=== PATIENT | female | born 1950 | race Caucasian/White ===

== ENCOUNTER → 2023-09-21 11:05 | Outpatient (REF) | payer MEDICARE, OTHER, SELFPAY ==
[2023-09-21 12:41] LABS: ALT (SGPT) 24 U/L (0-35); AST (SGOT) 39 U/L (14-36); Albumin 5.1 g/dl (3.5-5.0); Alkaline Phosphatase 68 U/L (38-126); Blood Urea Nitrogen 19 mg/dl (7-17); Calcium 9.9 mg/dl (8.4-10.2); Carbon Dioxide 25 mmol/L (22-30); Chloride 101 mmol/L (98-107); Glucose 93 mg/dl (70-99); Potassium 4.1 mmol/L (3.5-5.1); Sodium 136 mmol/L (135-145); Total Cholesterol 250 mg/dl (50-199); Total Protein 8.5 g/dl (6.3-8.2); Triglyceride 83 mg/dl (10-149); Very Low Density Lipoprotein 16 mg/dl (0-30); eGFR > 60.00
[2023-09-21 12:50] LABS: HDL Cholesterol 138 mg/dl; LDL Cholesterol, Calculated 96 mg/dl
[2023-09-21 14:10] LABS: Glycohemoglobin (HgbA1c) 5.9 % (4.0-5.6)
== END ==
LOC: REG 11:05
PROVIDERS: ATTENDING PHYSICIAN Family Medicine; REFERRING PHYSICIAN Psychiatry & Neurology Neurology
DX: E78.00 Pure hypercholesterolemia, unspecified (principal); R73.03 Prediabetes; R73.9 Hyperglycemia, unspecified; Z13.228 Encounter for screening for other metabolic disorders
CPT/HCPCS: 36415; 80053; 80061; 83036

== ENCOUNTER → 2023-09-24 10:37 | Outpatient (REF) | payer MEDICARE, OTHER, SELFPAY | LOC: RAD 10:37 | PROVIDERS: ATTENDING PHYSICIAN Internal Medicine Rheumatology; FAMILY PHYSICIAN Family Medicine | DX: M81.0 Age-related osteoporosis without current pathological fracture (principal); Z79.899 Other long term (current) drug therapy | CPT/HCPCS: 77080 ==

== ENCOUNTER → 2023-12-17 10:21 | Outpatient (REF) | payer MEDICARE, OTHER, SELFPAY ==
[2023-12-17 11:54] LABS: ALT (SGPT) 11 U/L (0-35); AST (SGOT) 36 U/L (14-36); Albumin 4.8 g/dl (3.5-5.0); Alkaline Phosphatase 61 U/L (38-126); Blood Urea Nitrogen 26 mg/dl (7-17); Calcium 10.3 mg/dl (8.4-10.2); Carbon Dioxide 29 mmol/L (22-30); Chloride 101 mmol/L (98-107); Glucose 113 mg/dl (70-99); Potassium 4.8 mmol/L (3.5-5.1); Sodium 139 mmol/L (135-145); Total Bilirubin 0.8 mg/dl (0.2-1.3); Total Protein 7.9 g/dl (6.3-8.2); eGFR > 60.00
== END ==
LOC: REG 10:21
PROVIDERS: ATTENDING PHYSICIAN Internal Medicine Rheumatology; FAMILY PHYSICIAN Family Medicine
DX: M81.0 Age-related osteoporosis without current pathological fracture (principal); Z79.899 Other long term (current) drug therapy
CPT/HCPCS: 36415; 80053

== ENCOUNTER → 2024-07-01 12:40 | Outpatient (REF) | payer MEDICARE, OTHER, SELFPAY ==
[2024-07-01 13:21] LABS: Ionized Calcium 1.26 mMOL/L (1.15-1.33)
[2024-07-01 14:14] LABS: ALT (SGPT) < 10 U/L (0-35); AST (SGOT) 37 U/L (14-36); Alkaline Phosphatase 62 U/L (38-126); Blood Urea Nitrogen 16 mg/dl (7-17); Calcium 9.9 mg/dl (8.4-10.2); Carbon Dioxide 34 mmol/L (22-30); Chloride 96 mmol/L (98-107); Glucose 71 mg/dl (70-99); Potassium 4.1 mmol/L (3.5-5.1); Sodium 139 mmol/L (135-145); Total Bilirubin 0.7 mg/dl (0.2-1.3); Total Protein 8.3 g/dl (6.3-8.2); eGFR > 60.00
[2024-07-01 14:30] LABS: Vitamin D, 25-OH*** 54.4 ng/mL (30-80)
== END ==
LOC: REG 12:40
PROVIDERS: ATTENDING PHYSICIAN Internal Medicine Rheumatology; FAMILY PHYSICIAN Family Medicine
DX: E83.52 Hypercalcemia (principal); M81.0 Age-related osteoporosis without current pathological fracture; Z79.899 Other long term (current) drug therapy
CPT/HCPCS: 36415; 80053; 82306; 82330; 83970

== ENCOUNTER → 2024-07-06 14:27 | Outpatient (REF) | payer MEDICARE, OTHER, SELFPAY ==
[2024-07-06 16:18] LABS: Folate 5.6 ng/ml (2.76-20); Vitamin B12 415 pg/ml (239-931)
== END ==
LOC: REG 14:27
PROVIDERS: ATTENDING PHYSICIAN Internal Medicine Rheumatology; FAMILY PHYSICIAN Family Medicine; REFERRING PHYSICIAN Psychiatry & Neurology Neurology
DX: D51.3 Other dietary vitamin B12 deficiency anemia (principal); G20.A1 Parkinson's disease without dyskinesia, without mention of fluctuations; M81.0 Age-related osteoporosis without current pathological fracture; Z79.899 Other long term (current) drug therapy; E53.1 Pyridoxine deficiency
CPT/HCPCS: 36415; 82607; 82746; 84207

== ENCOUNTER → 2024-12-29 11:19 | Outpatient (REF) | payer MEDICARE, OTHER, SELFPAY | LOC: WDC 11:19 | PROVIDERS: ATTENDING PHYSICIAN Family Medicine | DX: Z12.31 Encounter for screening mammogram for malignant neoplasm of breast (principal) | CPT/HCPCS: 77063; 77067 ==

== ENCOUNTER → 2024-12-29 11:50 | Outpatient (REF) | payer MEDICARE, OTHER, SELFPAY ==
[2024-12-29 14:35] LABS: Hematocrit 44.1 % (37.0-47.0); Hemoglobin 14.3 g/dL (12.0-16.0); Mean Corp Hgb Conc. 32.4 g/dL (33.0-37.0); Mean Corpuscular Volume 100.0 fL (81.0-99.0); Nucleated Red Blood Cells % 0 %; Platelet Count 207 10^3/uL (130-400); Red Cell Dist. Width 13.7 % (11.5-14.5)
[2024-12-29 15:00] LABS: ALT (SGPT) < 10 U/L (0-35); AST (SGOT) 26 U/L (14-36); Albumin 4.9 g/dl (3.5-5.0); Alkaline Phosphatase 62 U/L (38-126); Blood Urea Nitrogen 19 mg/dl (7-17); Calcium 10.2 mg/dl (8.4-10.2); Carbon Dioxide 28 mmol/L (22-30); Chloride 102 mmol/L (98-107); Glucose 128 mg/dl (70-99); Potassium 4.6 mmol/L (3.5-5.1); Sodium 139 mmol/L (135-145); Total Protein 7.8 g/dl (6.3-8.2); eGFR > 60.00
== END ==
LOC: REG 11:50
PROVIDERS: ATTENDING PHYSICIAN Internal Medicine Rheumatology; OTHER PHYSICIAN Family Medicine
DX: M81.0 Age-related osteoporosis without current pathological fracture (principal); Z79.899 Other long term (current) drug therapy; G20.B1 Parkinson's disease with dyskinesia, without mention of fluctuations; R13.10 Dysphagia, unspecified; R07.89 Other chest pain
CPT/HCPCS: 36415; 80053; 85025; 93005

== ENCOUNTER 2025-01-27 12:00 | Emergency (ER) | payer MEDICARE, OTHER, SELFPAY ==
[2025-01-27 12:05] VITALS: BP 155/89
[2025-01-27 12:34] LABS: Hematocrit 40.8 % (37.0-47.0); Hemoglobin 13.7 g/dL (12.0-16.0); Mean Corp Hgb Conc. 33.6 g/dL (33.0-37.0); Mean Corpuscular Volume 98.1 fL (81.0-99.0); Nucleated Red Blood Cells % 0 %; Platelet Count 235 10^3/uL (130-400); Red Cell Dist. Width 13.6 % (11.5-14.5)
[2025-01-27 12:42] LABS: ALT (SGPT) < 10 U/L (0-35); AST (SGOT) 26 U/L (14-36); Albumin 4.6 g/dl (3.5-5.0); Alkaline Phosphatase 59 U/L (38-126); Blood Urea Nitrogen 16 mg/dl (7-17); Calcium 9.7 mg/dl (8.4-10.2); Carbon Dioxide 25 mmol/L (22-30); Chloride 104 mmol/L (98-107); Glucose 124 mg/dl (70-99); Potassium 4.4 mmol/L (3.5-5.1); Sodium 136 mmol/L (135-145); Total Protein 7.6 g/dl (6.3-8.2); eGFR > 60.00
--- NOTE | 2025-01-27 13:29 | ED.GENMED ---
History of Present Illness
General
Chief Complaint: Change in Mental Status
Source: patient and family
Exam Limitations: none
Time Seen by Provider: 01/27/25 13:07
Nursing documentation reviewed up to this point in time: agreed with
History of Present Illness
History of Present Illness:
75-year-old female Parkinson's, followed by [facility] changed to a longer acting formulation of her dopamine medication, around that time she developed anxiety not sleeping, also has some stress in her life due to moving to a new home, saw
her PCP started on Zoloft, no missed doses of her Parkinson meds, felt some tingling in her hands, has occasionally trouble ambulating but no headache here she is oriented moves all extremities overall looks well has had some increased tremors
Past History
Past History
ED Past Medical History: Other (Parkinson's disease, fractured sternum)
ED Past Surgical History: Gynecological
Social History
Tobacco: Non-smoker
Drug: Former user
Living: with family
Employment: Employed
Review of Systems
Review of Systems
All Other Systems: Not applicable
Constitutional: Reports sleep disturbance
EENT: Reports no symptoms
Respiratory: Reports no symptoms
ABD/GI: Reports no symptoms
: Reports no symptoms
Musculoskeletal: Reports muscle stiffness
Neurological: Reports weakness and other (Tremor)
Psychiatric: Reports depression and anxiety
Phy Exam
Physical Exam
Physical Exam:
Physical Exam
General: no apparent distress, not acutely ill
Neck: No jaundice no tongue bite
Heart: s1/s2 regular rate and rhythm, no murmur. equal radial pulses.
Lungs: no acute respiratory distress. clear bilaterally
Abdomen: Nontender
Neuro: alert and oriented. Grossly nonfocal
Skin: no rash
Psychiatric: well kept. interactive and cooperative
Extremities: no edema.
Course
Orders/Labs/Results
Orders:
Orders
01/27/25 12:16
CMP [Comprehensive Metabolic Panel] Urgent
Complete Blood Count/With Diff Urgent
01/27/25 12:51
Urinalysis Reflex To Culture Urgent
Date Specimen was Collected: 01/27/25
Time Specimen was Collected: 12:10
Urine Microscopic Reflex Cult Urgent
Urine Culture Urgent
DARNELL Source: U
Specimen Description:
Date Specimen was Collected: 01/27/25
Time Specimen was Collected: 12:10
01/27/25 13:20
CT Head W/o Iv Contrast Urgent
Comment:
Reason For Exam: ataxia
01/27/25 13:51
Physical Therapy Consult [Pt Eval And Treat] Urgent
Activity Level: Ambulate
01/27/25 14:41
CefTRIAXone [Rocephin] 1,000 mg IV NOW STA
Magnesium Citrate [Citroma] 300 ml PO ONCE ONE
Abnormal Lab Results
01/27/25 01/27/25
12:16 12:51
RBC 4.16 L 10^6/uL
(4.20-5.40)
MCH 32.9 H pg
(27.0-31.0)
MPV 10.8 H fL
(7.4-10.4)
Absolute Lymphs (auto) 0.8 L 10^3/uL
(1.2-3.4)
Neutrophils % 81.4 H %
(42.2-75.2)
Lymphocytes % 10.3 L %
(20.5-51.1)
Glucose 124 H mg/dl
(70-99)
Urine Ketones 1+ A
(Negative)
Ur Occult Blood Reflex 2+ A
(Negative)
Urine Nitrite (Reflex) Positive A
(Negative)
Leukocyte Esterase Rfl 1+ A
(Negative)
Urine RBC 3-6 A /HPF
(0-2)
Urine Bacteria (Reflex) Many A
(Negative)
Urine Albumin (Reflex) 1+ A
(Neg - Trace)
01/27/25 12:16
01/27/25 12:16
Vital Signs
Initial and Last Documented VS:
Initial Vital Signs
Temp Pulse Resp BP Pulse Ox
99.1 F 84 16 155/89 95
01/27/25 12:05 01/27/25 12:05 01/27/25 12:05 01/27/25 12:05 01/27/25 12:05
Last Documented Vital Signs
Temp Pulse Resp BP Pulse Ox
99.1 F 84 16 155/89 95
01/27/25 12:05 01/27/25 12:05 01/27/25 12:05 01/27/25 12:05 01/27/25 13:30
MDM/Problems Addressed
Differential Diagnosis Includes:
Primary psychiatric, medication effect, doubt UTI or stroke
MDM/Problems Addressed:
Weakness anxiety sleep issues
Chronic conditions affecting care: Neurological disorder and Psychiatric illness
Acute Exacerbation and/or Progression of Chronic Illness: Neurological disorder and Psychiatric illness
*Pulse Oximetry
SaO2: 95
Oxygen Mode of Delivery: Room air
Patient hypoxic: no
*Critical Care Note
Total Time (30-74mins, 75-104mins- exclusive of procedures): Not Applicable
Update Note
Update Note:
2:20 PM patient ambulating without difficulty with physical therapy CT report noted urine noted
2:40 PM discussed with patient she has had some hard stools had to try to manually disimpact herself, took some stool softener without much relief, also urinary hesitancy not emptying her bladder will start on more aggressive bowel regimen and
antibiotics
ED Attending Note
-
Portions of this chart may have been created with voice recognition software.� Occasional wrong word or��sound alike� substitutions may have occurred due to the inherent limitations of voice recognition software.
Discharge Plan
Departure
Patient Disposition: Home (Routine Discharge)
Date of Disposition: 01/27/25
Time of Disposition: 14:42
Patient with high blood pressure during this ER visit?: No
Condition: Good
Discharge Problem:
Acute UTI, Constipation
Instructions: Urinary tract infections in adults, Constipation in adults - ED discharge instructions
Prescriptions:
New
cephalexin 500 mg capsule
500 mg PO Q8H 7 Days Qty: 21 0RF
No Action
rasagiline 1 MG tablet
1 mg PO DAILY
Referrals:
Dalila Arredondo MD [Family Provider, Family Practice]
Interventions
Interventions:
*Risk Screen - Suicide Last Done: 01/27/25 12:05
*Neglect/Abuse Screening Last Done: 01/27/25 12:05
*ED- Fall Risk Assessment Last Done: 01/27/25 13:03
ED- Pulmonary Assessment Last Done: 01/27/25 13:03
ED- Neurological Assessment Last Done: 01/27/25 13:03
ED- Cardiac Assessment Last Done: 01/27/25 13:03
Discharge Date and Time
Print Language: BENGALI
[2025-01-27 14:07] LABS: Urine Character Slightly Cloudy (Clear)
[2025-01-27 14:22] LABS: Urine Urothelial Cell 0-2 /LPF (FEW)
[2025-01-27 14:29] VITALS: BP 144/80
[2025-01-27] MEDS: CITROMA 300 ML PO (15:01)
[2025-01-27] MEDS: KEFLEX 500 MG PO (15:01)
[2025-01-27 15:24] VITALS: BP 148/74
== END 2025-01-27 15:26 | disposition home or self-care (01) ==
LOC: EMR 12:00
PROVIDERS: Student in an Organized Health Care Education/Training Program; EMERGENCY PHYSICIAN Emergency Medicine; FAMILY PHYSICIAN Family Medicine
DX: N39.0 Urinary tract infection, site not specified (principal); K59.00 Constipation, unspecified; G20.A1 Parkinson's disease without dyskinesia, without mention of fluctuations; F41.9 Anxiety disorder, unspecified
CPT/HCPCS: 99284; 70450; 80053; 81003; 81015; 85025; 87086

== ENCOUNTER 2025-01-28 11:43 | Inpatient (IN) | payer MEDICARE, OTHER, SELFPAY ==
[2025-01-28] VITALS (10 sets, daily range): BP systolic 111–154; BP diastolic 65–96; O2SAT 96; BMI 19.4; BMI 18.6
--- NOTE | 2025-01-28 07:23 | ED.GENMED ---
History of Present Illness
General
Chief Complaint: Fainting Sensation
Source: patient, records and family
Exam Limitations: none
Time Seen by Provider: 01/28/25 07:23
History of Present Illness
History of Present Illness:
75yoF with a history of Parkinson's disease presenting with her family members for evaluation of weakness. Patient was switched to a long-acting carbidopa�levodopa about a week ago by her neurologist. She has been dealing with increased stress and
decreased sleep recently. Family reported that she was 'incoherent' and trembling yesterday so they brought her to the ED at which point she was diagnosed with a UTI. She was evaluated by physical therapy during her visit who recommended home PT.
She was given magnesium citrate for constipation and she is now experiencing diarrhea. Patient was prescribed Keflex but she is having trouble swallowing it due to the size of the pills. Patient is here for ongoing weakness. Family thinks she was
discharged too soon and wants her to stay for observation.
Past History
Past History
ED Past Medical History: Other (Parkinson's disease, fractured sternum)
ED Past Surgical History: Gynecological
Social History
Tobacco: Non-smoker
Drug: Former user
Living: with family
Employment: Employed
Phy Exam
General Physical Exam
General Presentation: well appearing and no apparent distress
General Skin: warm and dry
General Habitus: elderly and frail
General Mental: alert
ENT Exam
ENT Exam: normocephalic
Cardiovascular Exam
Cardiovascular Exam: regular rate/rhythm
Pulmonary Exam
Pulmonary Exam: lungs clear, no respiratory distress, no rales, no crackles, no rhonchi and no wheezing
Gastrointestinal Exam
Gastrointestinal Exam: non tender, soft and non distended
Neurological Exam
Neurological Exam: alert
[place] Coma Scale
Eye Opening: Spontaneous
Verbal Response: Oriented
Motor Response: Obeys Commands
GCS Total Score: 15
Skin Exam
Skin Exam: normal color and warm/dry
Psychiatric Exam
Psychiatric Exam: normal mood/affect
Course
Orders/Labs/Results
Orders:
Orders
01/28/25 06:56
EKG [Electrocardiogram (*1)] Urgent
Reason for Study: Syncope
EKG- Treatment ONCE
01/28/25 07:35
0.9% Sodium Chloride 500 ml [Nss] 500 ml IV BOLUS
01/28/25 08:39
Basic Metabolic Panel Urgent
Complete Blood Count/With Diff Urgent
Troponin I Urgent
01/28/25 09:28
CefTRIAXone [Rocephin] 1,000 mg IV NOW STA
01/28/25 09:46
LFT [Mdlwt-Gjqt-Rxtntdk] Urgent
Potassium Urgent
01/28/25 11:06
Admit/Transfer Patient As Directed
Co-Sign Provider:
Level of Care: Inpatient admission
Assign to:: Medical/Surgical
Physician / Group: chito garcia
Diagnosis: UTI, ambulatory dysfunction, Parkinson's disease
Reason for Hospitalization: UTI, ambulatory dysfunction, Parkinson's disease
Expected length of stay greater than two midnights?: Yes
ELOS- Estimated Length of Stay in days: 3
I certify the patient meets the requirements for IP care: Yes
01/28/25 11:07
PRN Pain Medication Management As Directed
May give lesser potent ordered pain med per pt: Yes
preference::
Protocol:: Medication orders for pain may be administered in a
manner that supports deferring to patient preference
when the pt is:
- Requesting an ordered lesser potent pain medication.
Least to most potent pain medications are defined
as: acetaminophen < NSAID < tramadol < opioids
(morphine, oxycodone, hydromorphone).
- Requesting a lesser dose of the same medication IF
ORDERED.
- Requesting a less intrusive route of administration
if both routes are prescribed by the provider (PO <
IV).
01/28/25 11:08
Code Status As Directed
Resuscitation Status: Full Code
01/28/25 11:11
Pt Eval And Treat Routine
Activity Level: As Tolerated
Speech Therapy Eval & Treat Routine
01/28/25 11:14
NEUROLOGY CONSULT Routine
Consulting Provider: Ayaan Lovelace
Was physician already notified: Yes
01/29/25 10:00
CefTRIAXone [Rocephin] 1,000 mg IV Q24H
Sterile Water [Sterile Water For Injection] 10 ml IV Q24H
Abnormal Lab Results
01/28/25
08:39
RBC 3.97 L 10^6/uL
(4.20-5.40)
MCH 33.2 H pg
(27.0-31.0)
MPV 11.1 H fL
(7.4-10.4)
Absolute Lymphs (auto) 0.9 L 10^3/uL
(1.2-3.4)
Absolute Monos (auto) 0.8 H 10^3/uL
(0.1-0.6)
Neutrophils % 78.3 H %
(42.2-75.2)
Lymphocytes % 11.0 L %
(20.5-51.1)
Monocytes % 9.6 H %
(1.7-9.3)
Sodium 134 L mmol/L
(135-145)
BUN 19 H mg/dl
(7-17)
Glucose 102 H mg/dl
(70-99)
01/28/25 08:39
01/28/25 09:46
Vital Signs
Initial and Last Documented VS:
Initial Vital Signs
Temp Pulse Resp BP Pulse Ox
98.7 F 95 18 154/96 99
01/28/25 06:57 01/28/25 06:57 01/28/25 06:57 01/28/25 06:57 01/28/25 06:57
Last Documented Vital Signs
Temp Pulse Resp BP Pulse Ox
98.7 F 92 17 154/83 95
01/28/25 06:57 01/28/25 12:00 01/28/25 12:00 01/28/25 11:00 01/28/25 11:15
MDM/Problems Addressed
Differential Diagnosis Includes:
75yoF here with weakness. Seen in the ED yesterday for the same and diagnosed with a UTI. Hx of Parkinson's. VSS. She is non-toxic appearing. Differential diagnosis includes but is not limited to: UTI, dehydration, weakness related to Parkinson's,
failure to thrive
EKG shows normal sinus rhythm without ischemic changes and troponin normal. Labs overall unremarkable. Family does not feel comfortable with patient being at home and are requesting observation in the hospital. IV Rocephin ordered and patient
admitted for further management.
*Pulse Oximetry
SaO2: 99
Oxygen Mode of Delivery: Room air
Patient hypoxic: no (99%)
*EKG
Interpreted by ED Provider?: Yes
EKG Intrepretation Date: 01/28/25
Heart Rate: 89
Rate: normal
Rhythm: sinus
[place]: normal axis
Interval: normal interval
QRS Pattern: normal QRS
Ischemia: no ischemia (isolated T wave inversion in III)
*Critical Care Note
Total Time (30-74mins, 75-104mins- exclusive of procedures): Not Applicable
ED Attending Note
-
Portions of this chart may have been created with voice recognition software.� Occasional wrong word or��sound alike� substitutions may have occurred due to the inherent limitations of voice recognition software.
Discharge Plan
Departure
Patient Disposition: Admit
Date of Disposition: 01/28/25
Time of Disposition: 09:37
Presentation/result/management discussed w/ accepting MD/DO: Hospitalist
Discharge Problem:
Urinary tract infection, Generalized weakness
Interventions
Interventions:
*Risk Screen - Suicide Last Done: 01/28/25 06:57
*General Assessment Last Done: 01/28/25 08:25
*Neglect/Abuse Screening Last Done: 01/28/25 06:57
*ED- Fall Risk Assessment Last Done: 01/28/25 08:25
*ED COVID-19 Vaccine History Last Done: 01/28/25 06:57
ED- Cardiac Assessment Last Done: 01/28/25 08:25
ED- Neurological Assessment Last Done: 01/28/25 08:25
[2025-01-28] MEDS: NSS 500 IV (08:40)
[2025-01-28 08:52] LABS: Hematocrit 38.6 % (37.0-47.0); Hemoglobin 13.2 g/dL (12.0-16.0); Mean Corp Hgb Conc. 34.2 g/dL (33.0-37.0); Mean Corpuscular Volume 97.2 fL (81.0-99.0); Nucleated Red Blood Cells % 0 %; Platelet Count 241 10^3/uL (130-400); Red Cell Dist. Width 13.3 % (11.5-14.5)
[2025-01-28 09:11] LABS: Blood Urea Nitrogen 19 mg/dl (7-17); Calcium 9.3 mg/dl (8.4-10.2); Carbon Dioxide 27 mmol/L (22-30); Chloride 102 mmol/L (98-107); Estimated Creatinine Clearance 58 ml/min; Glucose 102 mg/dl (70-99); Sodium 134 mmol/L (135-145); eGFR > 60.00
[2025-01-28 09:19] LABS: Troponin I < 0.012 ng/ml
[2025-01-28] MEDS: ROCEPHIN 1000 MG IV (09:48)
[2025-01-28 10:10] LABS: ALT (SGPT) < 10 U/L (0-35); AST (SGOT) 26 U/L (14-36); Albumin 4.5 g/dl (3.5-5.0); Alkaline Phosphatase 59 U/L (38-126); Potassium 4.2 mmol/L (3.5-5.1); Total Protein 7.1 g/dl (6.3-8.2)
--- NOTE | 2025-01-28 11:11 | HPS.HSE ---
Family Physician
-
Family Physician: Dalila Arredondo
Chief Complaint
-
Weakness, dizziness
History of Present Illness
75-year-old female with history of advanced Parkinson's disease, anxiety came to the hospital for evaluation of weakness. Patient was here yesterday and was discharged home. Per family at bedside, patient was recently switched to a long-acting
levodopa carbidopa by her outpatient neurologist. She has been dealing with increased stress and decreased sleep recently. Now started to develop ambulatory dysfunction with possibility of catatonia. Yesterday patient was in the ER and was sent
home with oral Keflex for UTI. Currently patient denies chest pain, shortness of breath.
Medical History
Past Medical History
Past Medical History: Reports Psychiatric (Anxiety) and Other (Parkinson's disease)
Past Surgical History: Reports Gynocological
Social History
Tobacco: Non-smoker
Alcohol: None
Family History
Family History: Not pertinent
Allergies / Home Medications
Allergies reflects when Allergies were last updated in [employer].
Home Medications with original date entered in [employer]
Allergy/Medication List:
Allergies
Allergy/AdvReac Type Severity Reaction Status Date / Time
erythromycin lactobionate Allergy Pharmacy Verified 01/28/25 06:59
(From [facility]) to Review
Home Medications
carbidopa 70 mg-levodopa ER 280 mg capsule,immed and extended release (Crexont) 1 cap PO QID 01/27/25
cephalexin 500 mg capsule 500 mg PO Q8H 7 days #21 caps 01/27/25
sertraline 25 mg tablet 25 mg PO DAILY@1200 01/27/25
trazodone 50 mg tablet 50 mg PO HS 01/27/25
magnesium citrate (Citrate of Magnesia oral) 300 ml PO DAILYPRN PRN Constipation 01/28/25
polyethylene glycol 3350 17 gram/dose oral powder (Gavilax) 8.5 g PO DAILYPRN PRN Constipation 01/28/25
Review of Systems
-
History Source: Patient
A 12 point ROS was completed and negative except as noted: Yes
Psych: Reports Anxiety
Physical Exam
Vital Signs
Vital Signs
Temp Pulse Resp BP Pulse Ox
98.7 F 83 19 150/86 96
01/28/25 06:57 01/28/25 09:45 01/28/25 09:45 01/28/25 08:29 01/28/25 09:45
Physical Exam
General: Well Developed and Well Nourished
HEENT: Anicteric and Moist mucous membranes
Respiratory: Clear and Non Labored Respirations; No Wheezes
Cardiac: S1/S2 and Regular Rhythm
Breast: Deferred by me
GI: Soft, Non Tender, Non Distended and Normal Bowel Sounds
Rectal: Deferred by Provider
Genito-urinary: No Auguste
Musculoskeletal: No Edema
Neuro: Awake, Alert, Oriented and AO x 3
Psych: Anxious
Laboratory Results
-
01/28/25 08:39
01/28/25 09:46
Laboratory Results
Total Bilirubin 0.6 mg/dl (0.2-1.3) 01/28/25 09:46
AST 26 U/L (14-36) 01/28/25 09:46
ALT < 10 U/L (0-35) 01/28/25 09:46
Alkaline Phosphatase 59 U/L (38-126) 01/28/25 09:46
Troponin I < 0.012 ng/ml 01/28/25 08:39
Data Reviewed
-
Lab Data: Labs Reviewed by me, Discussed with Patient and Discussed with Family
Impression/Plan
-
Ambulatory dysfunction suspect secondary to worsening Parkinson's disease
Neurology consulted
Added Entacapone per neurology recommendation along with Crexont
Discontinue sertraline
Continue with trazodone at night
Patient should follow-up with neurology outpatient
CT 01/27 no acute abnormality
UTI
Follow urine culture
Continue ceftriaxone
Hyponatremia
Monitor
Check orthostatics
gentle hydration
Loose stool likely secondary to recent use of mag citrate
Monitor
DVT prophylaxis
Heparin
Full code
--- NOTE | 2025-01-28 11:30 | CON.NEURO4 ---
Addendum entered and electronically signed by Ayaan Lovelace MD 01/28/25 12:54:
Studies reviewed.
I have personally examined the patient. I reviewed and agree with the POT ROOM TAPPER's Note.
My addenda:
Awake, alert, interactive. No acute distress.
Speech intact, not hypophonic.
Follows 2-step requests w/o difficulty. Bilateral hand tremor with activation. Masked facies.
Extra-ocular movements grossly intact.
Facial movements full and symmetric. Hearing intact to normal conversational volume.
Normal UE movements bilaterally.
Neck: full ROM.
Chest: no dyspnea
Heart: no JVD
Ext: (-) Clubbing, (-) Cyanosis, (-) Edema
IMPRESSIONS/RECOMMENDATIONS:
Abrupt onset of worsening gait without falling in a patient with advanced Parkinson's disease.
Treat freezing episodes with either opicapone dosed once a day or entacapone dosed with each dose of carbidopa/levodopa (dependent on which of the 2 medications are available in hospital)
Check orthostatic blood pressures
Eliminate sertraline
Provide trazodone alone in hopes of improving sleep and thus leading to less 'ananya'
Speech therapy evaluation for longstanding dysphagia
Continue carbidopa/levodopa, would advocate the patient takes her usual Crexont from home
Check blood work for potential metabolic abnormalities
D/W patient / family
All questions answered.
Will continue to follow pending results.
Original Note:
Consultation - Neurology 4
-
CONSULTING PHYSICIAN: Ayaan Lovelace MD
REFERRING PHYSICIAN: Hospitalists/Dr. Peñaloza
DICTATED BY: YE Gagr
DATE/TIME OF REQUEST: 01/28/25
DATE/TIME OF CONSULTATION: 01/28/25
Reason for Consultation: Weakness
History of Present Illness:
This is a 75-year-old right-handed female who has presented to the hospital with report of ongoing weakness. This information is obtained from the patient, her son at bedside, and outpatient medical records. Patient has a history of advanced
Parkinson's disease and is followed by [facility] Dr. Cobb as an outpatient. She was officially diagnosed with Parkinson's disease about 15 years ago. She has been having issues with significant ambulatory dysfunction, dysphagia,
hypophonia, dry mouth, and constipation for at least the past year. For the past 2-3 months she and her have been in the process of moving to an assisted living facility and this has been exceedingly stressful for her. Her son reports that
she barely sleeps. She is up all night, and then having fluctuations of ananya/hypomania during the day starting about 1.5 weeks ago. She was previously taking carbidopa-levodopa 25-100 1 tablet four times per day. At her last office visit with "Lucie"Jordyn on 01/06/25 this was switched to an extended release variation, Crexont, due to worsened tremor, freezing episodes, and leg heaviness. She started taking Crexont 1.5 weeks ago but her symptoms have been mostly unchanged. He notes that daily
at 1500 for the past week she has been 'freezing.' She was evaluated by her PCP on 01/23/25 due to ongoing insomnia and worsening depression and she was started on sertraline 25mg daily and trazodone 50mg nightly. Her son notes that for the past week
in the afternoon she has been behaving manically, writing gibberish and wandering. The patient says she has been trying to write to-do lists to keep track of all of the things she has to get done. Yesterday (01/27/25), her family brought her to the
ER due to concern for her speaking 'gibberish' and trembling. Her urine in the ER was suggestive of a UTI and she was started on cephalexin. CT head was obtained and is negative for any acute abnormalities. She was discharged home with physical
therapy orders and also magnesium citrate for severe constipation. She began to have diarrhea and became more weak, prompting her family to bring her back to the ER for evaluation today (01/28/25). They note that her walking has been very off-balance
and at times she reports feeling dizzy. She denies any headache, vision changes, and numbness.
Past Medical History: Parkinson's disease, REM sleep behavior disorder, Raynaud's, HLD, constipation, dysphagia, osteoporosis, basal cell carcinoma
Surgical History: Tonsillectomy, , laparotomy for ectopic , oophorectomy, Moh's surgery
Family History: Reviewed and noncontributory.
Social History: Denies tobacco, alcohol, and illicit drug use.
Allergies: Erythromycin, bee venom.
Home Medications: See below.
Review of Symptoms:
Patient denies any fever, headache, chest pain, shortness of breath, or symptoms.
�Per the HPI.�All systems are reviewed negative except above.
Physical Exam:
The patient is afebrile, abdomen is nondistended, breathing is unlabored, skin is warm and dry, no edema.
Neurologic Examination:
The patient is awake, alert and oriented x 3. She is able to follow commands and answer questions appropriately. There is no aphasia or dysarthria. Speech is hypophonic. +Masked facies. On cranial nerve assessment, pupils are 3 mm bilateral, round
and reactive to light and accommodation. Visual bueno are full. Extraocular movements are intact. Facial sensations are intact and bilaterally symmetrical, there is no facial asymmetry. Hearing is intact bilaterally to normal conversation volume.
Tongue palate and uvula are midline. Sternocleidomastoid strengths are full bilaterally. Motor strengths are 5/5 bilateral upper and lower extremities on medical research Britt scale. There is no drift. There is a low-medium amplitude semi
rhythmic tremor in distal bilateral upper extremities at rest and with exertion, right > left. Deep tendon reflexes are 2+ bilateral upper and lower extremities and Babinski is absent bilaterally. Coordination is intact by finger to nose
bilaterally.
Lab Results: See below.
Neuro Imaging:
1. CT Head 01/27/25: No acute intracranial abnormality.
Differentials for the patient's presentation include:
1. Weakness and change in mental status likely due to a metabolic disturbance in the setting of UTI, diarrhea, and new medications sertraline/trazodone and underlying advanced parkinson's disease.
2. Daily 1500 'freezing' episode likely due to carbidopa-levodopa wearing off.
Patient has the following risk factors for their symptoms: Advanced Parkinson's disease, new medications, UTI, diarrhea
Recommendations:
-Check orthostatic vital signs.
-Checking blood work for metabolic abnormalities.
-Would consider stopping sertraline for now and only continuing trazodone for sleep.
-Would discuss the following PD medication options with outpatient neurologist Dr. Cobb: Can add a regular release Sinemet 25/100 at 1400 daily to prevent 1500 freezing episode. The more helpful option would be to add Entacapone with Crexont
doses or Opicapone once daily to extend the benefits of Crexont; these options may be challenging with insurance coverage.
-Supportive care.
-Physical therapy evaluations.
-DVT prophylaxis.
Discussed patient care with: Dr. Lovelace, the patient, patient's family
Vital Signs and Labs
-
Vital Signs and Labs:
Vital Signs
Temp Pulse Resp BP Pulse Ox
98.7 F 92 17 154/83 95
01/28/25 06:57 01/28/25 12:00 01/28/25 12:00 01/28/25 11:00 01/28/25 11:15
Lab Results
01/28/25 08:39
01/28/25 09:46
Sodium 134 mmol/L (135-145) L 01/28/25 08:39
Potassium 4.2 mmol/L (3.5-5.1) 01/28/25 09:46
BUN 19 mg/dl (7-17) H 01/28/25 08:39
Glucose 102 mg/dl (70-99) H 01/28/25 08:39
Calcium 9.3 mg/dl (8.4-10.2) 01/28/25 08:39
Medications
-
Active Medications
Generic Name Dose Route Start Last Admin
Trade Name Freq PRN Reason Stop Dose Admin
Ceftriaxone Sodium 1,000 mg 01/29/25 10:00
Ceftriaxone 1000 Mg / 10 Ml Vial IV
Q24H NICOLLE
Sterile Water 10 ml 01/29/25 10:00
Sterile Water For Injection 10 Ml Vial IV 02/26/25 09:59
Q24H NICOLLE
Home Medications
�Medication �Instructions �Recorded
carbidopa 70 mg-levodopa ER 280 mg 1 cap PO QID 01/27/25
capsule,immed and extended release
(Crexont)
cephalexin 500 mg capsule 500 mg PO Q8H 7 days #21 caps 01/27/25
sertraline 25 mg tablet 25 mg PO DAILY@1200 01/27/25
trazodone 50 mg tablet 50 mg PO HS 01/27/25
magnesium citrate (Citrate of 300 ml PO DAILYPRN PRN Constipation 01/28/25
Magnesia oral)
polyethylene glycol 3350 17 8.5 g PO DAILYPRN PRN Constipation 01/28/25
gram/dose oral powder (Gavilax)
--- NOTE | 2025-01-28 12:54 | PTOTSP ---
Speech Therapy Evaluation:
Pt with known mild oral and moderate pharyngeal dysphagia s/p VSE completed in 2021. Family reported long standing history of trouble swallowing with frequent coughing with solids and liquids. Family does not let pt eat alone d/t c/f choking. Pt's
son reported this has been going on for years, but has recently worsened. At bedside, pt without s/sx of aspiration, however she demonstrated multiple swallows per bolus and globus sensation.
No chest imaging completed thus far, however given chronicity of symptoms, WBC WNL, pt afebrile, and on room air, recommend to continue oral diet. Pt would benefit from VSE during this admission given progressive nature of Parkinson's with family
reported decline in swallow function. Due extraneous factors (dizziness, frequent stools), timing to be determined.
Recommend:
1. Cont. baseline diet of regular solids and thin liquids
2. Medications crushed in puree
3. Strict aspiration and reflux precautions
4. 1:1 supervision and assistance with intake
5. COLLEGE TEACHER to follow to monitor diet tolerance, provide education, and determine timing for VSE
[2025-01-28 14:00] LABS: C-Reactive Protein < 5.00 mg/L (0.0-10.00)
[2025-01-28] MEDS: IMODIUM 2 MG PO (14:07)
[2025-01-28 14:28] LABS: TSH 3.66 uIU/ml (0.47-4.68)
[2025-01-28 14:32] LABS: Ferritin 36.1 ng/ml (11.1-264.0)
[2025-01-28 15:04] LABS: Folate 15.8 ng/ml (2.76-20); Vitamin B12 453 pg/ml (239-931)
[2025-01-28] MEDS: NON-FORMULARY ITEM 1 CAP PO ×2 (16:13→20:00)
[2025-01-28] MEDS: NSS 1000 IV (16:42)
[2025-01-28] MEDS: HEPARIN 5000 UNITS SC ×2 (16:43→23:17)
[2025-01-28] MEDS: COMTAN PO (18:04)
[2025-01-28] MEDS: DESYREL 50 MG PO (21:40)
[2025-01-28] MEDS: COMTAN 200 MG PO (21:40)
[2025-01-29] MEDS: NON-FORMULARY ITEM 1 CAP PO ×4 (06:14→18:11)
[2025-01-29 07:00] VITALS: BP 108/57; BP 94/55; BP 99/62; PULSE 72; PULSE 76; PULSE 78
[2025-01-29] MEDS: COMTAN 200 MG PO ×4 (08:36→21:04)
[2025-01-29] MEDS: HEPARIN 5000 UNITS SC ×3 (08:36→23:24)
[2025-01-29 09:32] LABS: Hematocrit 39.2 % (37.0-47.0); Hemoglobin 12.7 g/dL (12.0-16.0); Mean Corp Hgb Conc. 32.4 g/dL (33.0-37.0); Mean Corpuscular Volume 100.3 fL (81.0-99.0); Nucleated Red Blood Cells % 0 %; Platelet Count 216 10^3/uL (130-400); Red Cell Dist. Width 13.9 % (11.5-14.5)
[2025-01-29 09:51] LABS: Blood Urea Nitrogen 16 mg/dl (7-17); Calcium 8.2 mg/dl (8.4-10.2); Carbon Dioxide 29 mmol/L (22-30); Chloride 104 mmol/L (98-107); Estimated Creatinine Clearance 47 ml/min; Glucose 92 mg/dl (70-99); Potassium 3.9 mmol/L (3.5-5.1); Sodium 136 mmol/L (135-145); eGFR > 60.00
[2025-01-29] MEDS: STERILE WATER FOR INJECTION 10 ML IV (10:34)
[2025-01-29] MEDS: ROCEPHIN 1000 MG IV (10:35)
--- NOTE | 2025-01-29 12:18 | W.PN.HOSP.TC ---
Today's Communication/Plan
-
monitor vitals
see plan
cw orthos
gentle hydration
cw parkinson's meds
VSE today
Assessment / Plan
Assessment / Plan
General: Well Developed and Well Nourished
HEENT: Anicteric and Moist mucous membranes
Respiratory: Clear and Non Labored Respirations; No Wheezes
Cardiac: S1/S2 and Regular Rhythm
GI: Soft, Non Tender, Non Distended and Normal Bowel Sounds
Genito-urinary: No Auguste
Musculoskeletal: No Edema
Neuro: Awake, Alert, Oriented and AO x 3
Psych: Anxious
Ambulatory dysfunction suspect secondary to worsening Parkinson's disease
Neurology following
Added Entacapone per neurology recommendation along with Crexont
Discontinue sertraline
Continue with trazodone at night
Patient should follow-up with neurology outpatient
CT 01/27 no acute abnormality
orthos noted
speech following; VSE today
UTI
Follow urine culture
Continue ceftriaxone
Hyponatremia
Monitor
orthos noted
gentle hydration
Loose stool likely secondary to recent use of mag citrate
Monitor
DVT prophylaxis
Heparin
Full code
Anticipated Discharge: 24 - 48 hours
Subjective/Interval History
-
Date of Service: January 29, 2025
denies nausea
Objective Data
-
Labs:
Laboratory Results
01/29/25 01/29/25
08:53 08:54
WBC 5.6
Hgb 12.7
Hct 39.2
Plt Count 216
Sodium 136
Potassium 3.9
Chloride 104
Carbon Dioxide 29
BUN 16
Creatinine 0.7
Glucose 92
Calcium 8.2 L
Vital Signs:
Vital Signs
Temp Pulse Resp BP Pulse Ox
97.6 F 75 16 111/65 96
01/29/25 07:00 01/28/25 23:36 01/28/25 23:36 01/28/25 23:36 01/28/25 23:36
I&O
01/28/25 01/29/25 01/30/25
06:59 06:59 06:59
Intake Total 0 / 0
Balance 0 / 0
--- NOTE | 2025-01-29 12:44 | PTOTSP ---
Speech Therapy VSE:
Patient presents with functional�oral and moderate pharyngeal dysphagia. Patient demonstrated upper laryngeal penetration (PAS 3) across all consistencies. Trace silent aspiration (PAS 8) observed with bite sized solid. There was significant
pharyngeal residue, most notable in the pyriform sinuses, which caused penetration/aspiration during subsequent swallows (patient required average of 5 swallows per bolus). No instances of penetration/aspiration observed with puree, however residue
was most significant with this consistency, greatly increasing risk of aspiration. Performance on VSE shows mild decline in swallow function compared to VSE completed in 2021, likely in the setting of Parkinson�s. Please see patient care note for
full details of penetration/aspiration and swallowing physiology.
�
Recommend: �
1. Consider IDDSI 6 (soft and bite sized solids) and thin liquids with known risk of aspiration given trace silent aspiration on study versus IDDSI (puree) and thin liquids, though aspiration risk increased given significant residue with this
consistency.
2. Medications crushed in puree
3. Strict Aspiration precautions: 1:1 supervision with meals, small bites/sips, added moisture to all PO, intermittent throat clear, multiple swallows per bolus
4. GERD precautions: upright all meals, cyclic ingestion, remain upright for at least 30 minutes following meal
5. Modifiable risk factors for aspiration pneumonia including encouraging frequent and thorough oral care, pulmonary hygiene measures, and increasing physical mobility as medically feasible
6. CAR CHASER to follow for education regarding VSE findings/recommendations, initiation of pharyngeal strength exercises, and for diet tolerance
[2025-01-29] MEDS: NSS 1000 IV (13:17)
[2025-01-29 15:00] VITALS: BP 109/56
--- NOTE | 2025-01-29 15:39 | CM ---
Patient seen bedside.
IA completed, patients voice very soft.
Patient very anxious.
dx UTI, ambulatory dysfunction, parkinsons.
Patient lives with spouse in a 2 story home.
They were in the process arranging alternate living arrangements due to patient Parkinsons and spouse with some memory issues. Daughter is assisting.
Patient ambulates without assistive devices, no DME.
Patient denies having VN in the home.
Patient had VSE today.
Attempted to discuss discharge plans with patient, she said her daughter just left to take spouse home and would like someone to come back tomorrow when daughter is there to discuss plans.
PT recommending HC, VSE completed today.
PCP: Dr Arredondo
Pharmacy: [facility]
Plan: home with VN vs rehab needs.
[2025-01-29 20:24] VITALS: BP 129/73; BP 131/70; BP 133/73; PULSE 79; PULSE 88
[2025-01-29] MEDS: DESYREL 50 MG PO (21:04)
[2025-01-29 23:14] VITALS: BP 125/71
[2025-01-30 06:00] VITALS: BMI 19.3
[2025-01-30] MEDS: NSS 1000 IV (06:25)
[2025-01-30 07:15] VITALS: BP 158/91
[2025-01-30 07:57] LABS: Hematocrit 36.3 % (37.0-47.0); Hemoglobin 12.0 g/dL (12.0-16.0); Mean Corp Hgb Conc. 33.1 g/dL (33.0-37.0); Mean Corpuscular Volume 98.4 fL (81.0-99.0); Nucleated Red Blood Cells % 0 %; Platelet Count 206 10^3/uL (130-400); Red Cell Dist. Width 13.9 % (11.5-14.5)
[2025-01-30] MEDS: NON-FORMULARY ITEM 1 CAP PO ×4 (08:21→18:58)
[2025-01-30] MEDS: COMTAN 200 MG PO ×4 (08:22→21:02)
[2025-01-30] MEDS: HEPARIN 5000 UNITS SC ×3 (08:23→23:30)
[2025-01-30 08:43] VITALS: BP 158/91
[2025-01-30 08:54] LABS: Blood Urea Nitrogen 11 mg/dl (7-17); Calcium 8.3 mg/dl (8.4-10.2); Carbon Dioxide 25 mmol/L (22-30); Chloride 106 mmol/L (98-107); Estimated Creatinine Clearance 57 ml/min; Glucose 95 mg/dl (70-99); Potassium 4.1 mmol/L (3.5-5.1); Sodium 135 mmol/L (135-145); eGFR > 60.00
[2025-01-30] MEDS: ROCEPHIN 1000 MG IV (10:30)
[2025-01-30] MEDS: STERILE WATER FOR INJECTION 10 ML IV (10:30)
--- NOTE | 2025-01-30 11:32 | W.PN.HOSP.TC ---
Today's Communication/Plan
-
Monitor vital signs see plan
Discussed with family, interested in half-way placement
Continue with Parkinson meds
DC further antibiotics
Discharge planning
Assessment / Plan
Assessment / Plan
General: Well Developed and Well Nourished
HEENT: Anicteric and Moist mucous membranes
Respiratory: Clear and Non Labored Respirations; No Wheezes
Cardiac: S1/S2 and Regular Rhythm
GI: Soft, Non Tender, Non Distended and Normal Bowel Sounds
Genito-urinary: No Auguste
Musculoskeletal: No Edema
Neuro: Awake, Alert, Oriented and AO x 3
Psych: Anxious
Ambulatory dysfunction suspect secondary to worsening Parkinson's disease
Neurology following
Added Entacapone per neurology recommendation along with Crexont
Discontinue sertraline
Continue with trazodone at night
Patient should follow-up with neurology outpatient
CT 01/27 no acute abnormality
orthos noted
speech following; VSE noted, continue with IDD of 6 diet
UTI
Urine culture with mixed bernadine, DC further antibiotic
Hyponatremia
Monitor
orthos noted
dc further IVF
Loose stool likely secondary to recent use of mag citrate
Monitor
DVT prophylaxis
Heparin
Full code
Anticipated Discharge: Within 24 hours
Subjective/Interval History
-
Date of Service: January 30, 2025
denies pain
Objective Data
-
Labs:
Laboratory Results
01/30/25
06:44
WBC 6.6
Hgb 12.0
Hct 36.3 L
Plt Count 206
Sodium 135
Potassium 4.1
Chloride 106
Carbon Dioxide 25
BUN 11
Creatinine 0.6
Glucose 95
Calcium 8.3 L
Vital Signs:
Vital Signs
Temp Pulse Resp BP Pulse Ox
98.1 F 81 16 158/91 97
01/30/25 07:15 01/30/25 07:15 01/30/25 07:15 01/30/25 07:15 01/30/25 07:15
I&O
01/29/25 01/30/25 01/31/25
06:59 06:59 06:59
Intake Total 0 / 0
Balance 0 / 0
[2025-01-30 11:37] VITALS: BP 137/85; BP 147/85; BP 148/97; PULSE 81; PULSE 82
--- NOTE | 2025-01-30 13:27 | CM ---
Family requested to speak w/ CM regarding d/c plan for patient. Met w/ family and patient at bedside, discussed therapy rec of home PT. Family requesting if PT can see patient again. Family working on getting patient and spouse to [facility] for
respite care then eventually to [facility] independent/assisted living. Family is considering [facility] for respite care as well if they do not move forward w/ [facility].
TT weekend PT/OT group to see patient, hopefully today
Updated hospitalist
Plan: Home w/ HC vs rehab needs
[2025-01-30 15:09] VITALS: BP 127/73
[2025-01-30 20:23] VITALS: BP 121/76; BP 127/78; BP 129/80; PULSE 78; PULSE 83
[2025-01-30] MEDS: DESYREL 50 MG PO (21:02)
[2025-01-30 23:59] VITALS: BP 126/73
[2025-01-31] MEDS: NSS 1000 IV (00:57)
[2025-01-31 06:00] VITALS: BMI 19.3
[2025-01-31] MEDS: NON-FORMULARY ITEM 1 CAP PO ×4 (06:38→18:27)
[2025-01-31 07:01] VITALS: BP 124/76
[2025-01-31 07:57] LABS: Hematocrit 39.0 % (37.0-47.0); Hemoglobin 13.1 g/dL (12.0-16.0); Mean Corp Hgb Conc. 33.6 g/dL (33.0-37.0); Mean Corpuscular Volume 98.2 fL (81.0-99.0); Nucleated Red Blood Cells % 0 %; Platelet Count 232 10^3/uL (130-400); Red Cell Dist. Width 13.6 % (11.5-14.5)
[2025-01-31 08:41] LABS: Blood Urea Nitrogen 10 mg/dl (7-17); Calcium 9.4 mg/dl (8.4-10.2); Carbon Dioxide 28 mmol/L (22-30); Chloride 102 mmol/L (98-107); Estimated Creatinine Clearance 57 ml/min; Glucose 109 mg/dl (70-99); Potassium 3.8 mmol/L (3.5-5.1); Sodium 135 mmol/L (135-145); eGFR > 60.00
[2025-01-31] MEDS: COMTAN 200 MG PO ×4 (08:55→20:35)
[2025-01-31] MEDS: HEPARIN 5000 UNITS SC ×3 (08:55→23:02)
--- NOTE | 2025-01-31 10:21 | W.PN.HOSP.TC ---
Today's Communication/Plan
-
Monitor vital signs see plan
Discharge planning
PT
manager of construction for assistance
Called daughter, left voicemail
Assessment / Plan
Assessment / Plan
General: Well Developed and Well Nourished
HEENT: Anicteric and Moist mucous membranes
Respiratory: Clear and Non Labored Respirations; No Wheezes
Cardiac: S1/S2 and Regular Rhythm
GI: Soft, Non Tender, Non Distended and Normal Bowel Sounds
Genito-urinary: No Auguste
Musculoskeletal: No Edema
Neuro: Awake, Alert, Oriented and AO x 3
Psych: Anxious
Ambulatory dysfunction suspect secondary to worsening Parkinson's disease
Also does have severe anxiety
Neurology following
Added Entacapone per neurology recommendation along with Crexont
Discontinue sertraline
Continue with trazodone at night
Patient should follow-up with neurology outpatient
CT 01/27 no acute abnormality
orthos noted
speech following; VSE noted, continue with IDDS 6 diet
UTI
Urine culture with mixed bernadine, DC further antibiotic
Hyponatremia
Monitor
orthos noted
dc further IVF
Loose stool likely secondary to recent use of mag citrate
Monitor
DVT prophylaxis
Heparin
Full code
PT/OT initially recommended home. Discussed with daughter 01/30 and she requested that she would like patient to be placed in [facility]. This was discussed with manager case. Awaiting new PT/OT.
Called daughter /17, left voicemail
Anticipated Discharge: Within 24 hours
Subjective/Interval History
-
Date of Service: January 31, 2025
denies pain
Objective Data
-
Labs:
Laboratory Results
01/31/25
07:31
WBC 6.9
Hgb 13.1
Hct 39.0
Plt Count 232
Sodium 135
Potassium 3.8
Chloride 102
Carbon Dioxide 28
BUN 10
Creatinine 0.6
Glucose 109 H
Calcium 9.4
Vital Signs:
Vital Signs
Temp Pulse Resp BP Pulse Ox
97.8 F 76 16 124/76 96
01/31/25 07:01 01/31/25 07:01 01/31/25 07:01 01/31/25 07:01 01/31/25 07:01
I&O
01/30/25 01/31/25 02/01/25
06:59 06:59 06:59
Intake Total 840 / 840 600 / 600
Balance 840 / 840 600 / 600
[2025-01-31 15:05] VITALS: BP 134/83; BP 139/82; BP 143/78; PULSE 85; PULSE 90
[2025-01-31 15:06] VITALS: BP 134/78
[2025-01-31] MEDS: DESYREL 50 MG PO (20:35)
[2025-01-31 23:15] VITALS: BP 124/75
[2025-02-01 05:17] VITALS: BP 147/88
[2025-02-01 05:30] VITALS: BMI 19.0
[2025-02-01] MEDS: NON-FORMULARY ITEM 1 CAP PO ×4 (06:22→19:27)
[2025-02-01 07:48] VITALS: BP 138/75
--- NOTE | 2025-02-01 08:32 | W.PN.HOSP.TC ---
Today's Communication/Plan
-
trial low dose ativan prn anxiety
discharge planning [facility]
Assessment / Plan
Assessment / Plan
General: Well Developed and Well Nourished
HEENT: Anicteric and Moist mucous membranes
Respiratory: Clear and Non Labored Respirations; No Wheezes
Cardiac: S1/S2 and Regular Rhythm
GI: Soft, Non Tender, Non Distended and Normal Bowel Sounds
Genito-urinary: No Auguste
Musculoskeletal: No Edema
Neuro: AOx3 conversant coherent mild resting tremor noted, no significant rigidity upper lower ext's
Psych: Anxious
75F Parkinson p/w ambulatory dysfunction UTI and significant Anxiety
Ambulatory dysfunction suspect secondary to worsening Parkinson's disease
Also has severe anxiety
Neurology eval appreciated
Added Entacapone per neurology recommendation along with Crexont
Discontinued sertraline as per neuro
Continue with trazodone at night
Patient should follow-up with neurology outpatient
CT 01/27 no acute abnormality
neg orthostatic vitals
speech following; VSE noted, continue with IDDS 6 diet
low dose Ativan 0.25 mg TIDPRN anxiety
UTI
Urine culture with mixed bernadine, DC further antibiotic
Mild Hyponatremia
Monitor
PT/OT eval appreciated Home Health, patient/family interested in assisted living [facility]
case mgmt consult appreciated
DVT prophylaxis
Heparin
Full code
Discussed with patient and patient's family ( Marbin and daughter Florinda)
I spent a total of 45 minutes with the patient or on the floor. More than 50% of this time involved counseling and coordination of care.
Anticipated Discharge: Within 24 hours
Subjective/Interval History
-
Date of Service: February 01, 2025
Reporting significant anxiety.
Objective Data
-
Labs:
Laboratory Results
02/01/25
06:00
WBC Pending
Hgb Pending
Hct Pending
Plt Count Pending
Sodium Pending
Potassium Pending
Chloride Pending
Carbon Dioxide Pending
BUN Pending
Creatinine Pending
Glucose Pending
Calcium Pending
Vital Signs:
Vital Signs
Temp Pulse Resp BP Pulse Ox
98.2 F 86 18 147/88 96
01/31/25 23:15 02/01/25 05:17 01/31/25 23:15 02/01/25 05:17 02/01/25 05:17
I&O
01/31/25 02/01/25 02/02/25
06:59 06:59 06:59
Intake Total 840 / 840 1140 / 1140
Balance 840 / 840 1140 / 1140
[2025-02-01] MEDS: COMTAN 200 MG PO ×4 (09:05→21:38)
[2025-02-01] MEDS: HEPARIN 5000 UNITS SC ×3 (09:05→23:17)
[2025-02-01 09:13] LABS: Hematocrit 39.4 % (37.0-47.0); Hemoglobin 13.0 g/dL (12.0-16.0); Mean Corp Hgb Conc. 33.0 g/dL (33.0-37.0); Mean Corpuscular Volume 98.7 fL (81.0-99.0); Nucleated Red Blood Cells % 0 %; Platelet Count 221 10^3/uL (130-400); Red Cell Dist. Width 13.7 % (11.5-14.5)
[2025-02-01 10:10] LABS: Blood Urea Nitrogen 12 mg/dl (7-17); Calcium 9.2 mg/dl (8.4-10.2); Carbon Dioxide 27 mmol/L (22-30); Chloride 101 mmol/L (98-107); Estimated Creatinine Clearance 48 ml/min; Glucose 106 mg/dl (70-99); Potassium 4.8 mmol/L (3.5-5.1); Sodium 133 mmol/L (135-145); eGFR > 60.00
[2025-02-01 13:01] VITALS: BP 139/76; PULSE 87; O2SAT 96
--- NOTE | 2025-02-01 14:13 | CM ---
Met with patient, her daughter and her spouse to discuss discharge planning. Patient's daughter stated that patient and her spouse would like to transition to an [facility] upon d/c from acute care as patient's spouse has Dementia and she is unable to
support herself or him at home. The outside sales advertising executive from [facility], Morena Sahu, came in to evaluate patient. , fax [phone], cell# [phone]
[facility] address: [address] [address].
Morena asked that a 'DME' application be completed by attending prior to consideration.
TT attending to advise that all paperwork that needs to be completed is in chart. Once documentation is completed and admissions has rendered their decision regarding acceptance, patient can transfer to assisted living.
Plan: Case management will continue to follow and assist with discharge planning. Patient and her spouse are hopeful to transfer to [facility] upon discharge.
[2025-02-01 15:57] VITALS: BP 146/85
[2025-02-01] MEDS: ATIVAN 0.25 MG PO (17:40)
[2025-02-01] MEDS: DESYREL 50 MG PO (21:38)
[2025-02-01 22:13] VITALS: BP 135/83; BP 144/82; BP 146/82; PULSE 82; PULSE 88
[2025-02-01 23:55] VITALS: BP 114/69
[2025-02-02 06:00] VITALS: BMI 18.8
[2025-02-02] MEDS: NON-FORMULARY ITEM 1 CAP PO ×4 (06:05→18:25)
[2025-02-02 07:20] VITALS: BP 122/69
[2025-02-02 08:27] LABS: Blood Urea Nitrogen 19 mg/dl (7-17); Calcium 9.4 mg/dl (8.4-10.2); Carbon Dioxide 27 mmol/L (22-30); Chloride 103 mmol/L (98-107); Estimated Creatinine Clearance 48 ml/min; Glucose 103 mg/dl (70-99); Potassium 4.3 mmol/L (3.5-5.1); Sodium 134 mmol/L (135-145); eGFR > 60.00
[2025-02-02 08:42] LABS: Magnesium 2.2 mg/dl (1.6-2.3)
--- NOTE | 2025-02-02 08:58 | W.PN.HOSP.TC ---
Today's Communication/Plan
-
Discharge planning [facility]isted [facility]
Assessment / Plan
Assessment / Plan
General: Well Developed and Well Nourished
HEENT: Anicteric and Moist mucous membranes
Respiratory: Clear and Non Labored Respirations; No Wheezes
Cardiac: S1/S2 and Regular Rhythm
GI: Soft, Non Tender, Non Distended and Normal Bowel Sounds
Genito-urinary: No Auguste
Musculoskeletal: No Edema
Neuro: AOx3 conversant coherent mild resting tremor noted, no significant rigidity upper lower ext's
Psych: Anxious
75F Parkinson p/w ambulatory dysfunction UTI and significant Anxiety
Ambulatory dysfunction suspect secondary to worsening Parkinson's disease
Also has severe anxiety
Neurology eval appreciated
Added Entacapone per neurology recommendation along with Crexont
Discontinued sertraline as per neuro
Continue with trazodone at night
Patient should follow-up with neurology outpatient
CT 01/27 no acute abnormality
neg orthostatic vitals
speech following; VSE noted, continue with IDDS 6 diet
low dose Ativan 0.25 mg TIDPRN anxiety tolerating well so far
UTI
Urine culture with mixed bernadine, DC further antibiotic
Mild Hyponatremia
Monitor
PT/OT eval appreciated Home Health, patient/family interested in assisted living [facility]
case mgmt consult appreciated
DVT prophylaxis
Heparin
Full code
Discharge planning [facility]
Discussed with patient and patient's family ( Marbin and daughter Florinda)
I spent a total of 45 minutes with the patient or on the floor. More than 50% of this time involved counseling and coordination of care.
Anticipated Discharge: 24 - 48 hours
Subjective/Interval History
-
Date of Service: February 02, 2025
No acute distress, appears comfortable at this time sitting up in chair. Endorses significant anxiety. Family present durng evaluation.
Objective Data
-
Labs:
Laboratory Results
02/02/25
07:06
Sodium 134 L
Potassium 4.3
Chloride 103
Carbon Dioxide 27
BUN 19 H
Creatinine 0.7
Glucose 103 H
Calcium 9.4
Vital Signs:
Vital Signs
Temp Pulse Resp BP Pulse Ox
97.5 F 75 20 122/69 95
02/02/25 07:20 02/02/25 07:20 02/02/25 07:20 02/02/25 07:20 02/02/25 07:20
I&O
02/01/25 02/02/25 02/03/25
06:59 06:59 06:59
Intake Total 1140 / 1140 720 / 720
Balance 1140 / 1140 720 / 720
[2025-02-02] MEDS: HEPARIN 5000 UNITS SC ×3 (09:10→23:26)
[2025-02-02] MEDS: COMTAN 200 MG PO ×4 (09:10→20:59)
[2025-02-02 15:20] VITALS: BP 127/76
[2025-02-02] MEDS: ATIVAN 0.25 MG PO (15:32)
[2025-02-02 15:49] VITALS: BP 141/86
--- NOTE | 2025-02-02 16:57 | CM ---
Spoke with patient's family, daughter and son in law as well as spouse. Patient's daughter put Nasreen in admissions at [facility] on the phone. She stated that they will most likely be able to accept patient tomorrow. They need the DME form faxed
to [phone]. Attending has it completed. Will fax to number provided.
Plan: Case management will continue to follow and assist with discharge planning. [facility].
[2025-02-02] MEDS: DESYREL 50 MG PO (20:59)
[2025-02-02 23:59] VITALS: BP 117/67
--- NOTE | 2025-02-03 02:37 | DOWNTIME ---
There was a [employer] Client Head Of Marketing Downtime on 02/03/2025 from 0100 to 02/03/2025 at 0235. Downtime documentation of patient's care, including medication administrations, has been reconciled in the electronic record per guidelines. Refer to the
patient's paper chart under the miscellaneous tab to see printed paper medication records and downtime forms.
[2025-02-03 06:00] VITALS: BMI 18.8
[2025-02-03] MEDS: NON-FORMULARY ITEM 1 CAP PO ×4 (06:40→18:16)
[2025-02-03 07:48] VITALS: BP 119/72
[2025-02-03] MEDS: HEPARIN 5000 UNITS SC ×3 (07:52→23:42)
[2025-02-03] MEDS: COMTAN 200 MG PO ×4 (07:52→21:09)
--- NOTE | 2025-02-03 07:57 | W.PN.HOSP.TC ---
Today's Communication/Plan
-
Discharge planning [facility]
Assessment / Plan
Assessment / Plan
Physical Exam
General: no acute distress appears comfortable at this time.
HEENT: Anicteric and Moist mucous membranes
Respiratory: Clear and Non Labored Respirations; No Wheezes
Cardiac: S1/S2 and Regular Rhythm
GI: Soft, Non Tender, Non Distended and Normal Bowel Sounds
Genito-urinary: No Auguste
Musculoskeletal: No Edema
Neuro: AOx3 conversant coherent mild resting tremor noted, no significant rigidity upper lower ext's
Psych: calm
75F Parkinson p/w ambulatory dysfunction UTI and significant Anxiety
Ambulatory dysfunction suspect secondary to worsening Parkinson's disease
Also has severe anxiety
Neurology eval appreciated
Added Entacapone per neurology recommendation along with Crexont
Discontinued sertraline as per neuro
Continue with trazodone at night
Patient should follow-up with neurology outpatient
CT 01/27 no acute abnormality
neg orthostatic vitals
speech following; VSE noted, continue with IDDS 6 diet
low dose Ativan 0.25 mg TIDPRN anxiety tolerating well so far
UTI
Urine culture with mixed bernadine, DC further antibiotic
Mild Hyponatremia
Monitor
PT/OT eval appreciated Home Health, patient/family interested in assisted living [facility]
case mgmt consult appreciated
DVT prophylaxis
Heparin
Full code
Discharge planning [facility]
Discussed with patient and patient's family ( Marbin and daughter Florinda)
I spent a total of 35 minutes with the patient or on the floor. More than 50% of this time involved counseling and coordination of care.
Anticipated Discharge: Within 24 hours
Subjective/Interval History
-
Date of Service: February 03, 2025
No acute distress, overall reports feeling well. Denies new acute issues at this time. Tolerating ativan prn for anxiety well.
Objective Data
-
Vital Signs:
Vital Signs
Temp Pulse Resp BP Pulse Ox
97.4 F 85 16 119/72 95
02/03/25 07:48 02/03/25 07:48 02/03/25 07:48 02/03/25 07:48 02/03/25 07:48
I&O
02/02/25 02/03/25 02/04/25
06:59 06:59 06:59
Intake Total 720 / 720
Balance 720 / 720
[2025-02-03 09:15] VITALS: BP 127/74; PULSE 79; O2SAT 95
[2025-02-03] MEDS: ATIVAN 0.25 MG PO (11:59)
[2025-02-03] MEDS: MIRALAX 8.5 GRAMS PO (11:59)
[2025-02-03 15:40] VITALS: BP 126/73
--- NOTE | 2025-02-03 16:41 | CM ---
Spoke with Nasreen from [facility] who confirmed that she received all faxed documentation. Attending updated.
Plan: Case management will continue to follow and assist with discharge planning. [facility] when cleared.
[2025-02-03] MEDS: DESYREL 50 MG PO (21:09)
[2025-02-04 00:01] VITALS: BP 117/68
[2025-02-04] MEDS: HEPARIN 5000 UNITS SC (07:36)
[2025-02-04] MEDS: COMTAN 200 MG PO ×2 (07:36→12:56)
[2025-02-04] MEDS: ATIVAN 0.25 MG PO (07:36)
[2025-02-04] MEDS: NON-FORMULARY ITEM 1 CAP PO ×2 (07:37→11:51)
[2025-02-04 07:45] VITALS: BP 139/87
--- NOTE | 2025-02-04 09:15 | W.PN.HOSP.TC ---
Addendum entered and electronically signed by Jaya Ledezma MD 02/08/25 06:49:
BMI 18.5 -24.9 normal weight range
Original Note:
Today's Communication/Plan
-
discharge
Assessment / Plan
Assessment / Plan
Physical Exam
General: no acute distress appears comfortable at this time. Ambulating without need for assist device
HEENT: Anicteric and Moist mucous membranes
Respiratory: Clear and Non Labored Respirations; No Wheezes
Cardiac: S1/S2 and Regular Rhythm
GI: Soft, Non Tender, Non Distended and Normal Bowel Sounds
Genito-urinary: No Auguste
Musculoskeletal: No Edema
Neuro: AOx3 conversant coherent mild resting tremor noted, no significant rigidity upper lower ext's
Psych: calm
75F Parkinson p/w ambulatory dysfunction UTI and significant Anxiety
Ambulatory dysfunction suspect secondary to worsening Parkinson's disease
Also has severe anxiety
Neurology eval appreciated
Added Entacapone per neurology recommendation along with Crexont
Discontinued sertraline as per neuro
Continue with trazodone at night
Patient should follow-up with neurology outpatient
CT 01/27 no acute abnormality
neg orthostatic vitals
speech following; VSE noted, continue with IDDS 6 diet
low dose Ativan 0.25 mg TIDPRN anxiety tolerating well
UTI
Urine culture with mixed bernadine, DC further antibiotic
Mild Hyponatremia
Monitor
PT/OT eval appreciated Home Health, patient/family interested in assisted living [facility]
case mgmt consult appreciated
DVT prophylaxis
Heparin
Full code
Medically stable for discharge [facility] with outpatient follow up recommendations.
Discussed with patient and patient's family ( Marbin and son in law)
Total Time Preparing Discharge ___40____ minutes including examination of the patient, summary of the hospital stay, instructions for continuing care to all relevant caregivers; and preparation of discharge records, prescriptions, and referral
forms if necessary.
Anticipated Discharge: Today
Subjective/Interval History
-
Date of Service: February 04, 2025
Seen and examined at bedside in no acute distress. Ambulating without need for assist device. Overall reports feeling well. Denies new acute issues at this time. Looking forward to [facility].
Objective Data
-
Vital Signs:
Vital Signs
Temp Pulse Resp BP Pulse Ox
98.4 F 88 16 139/87 96
02/04/25 07:45 02/04/25 07:45 02/04/25 07:45 02/04/25 07:45 02/04/25 07:45
I&O
02/03/25 02/04/25 02/05/25
06:59 06:59 06:59
Intake Total 1070 / 1070
Balance 1070 / 1070
--- NOTE | 2025-02-04 11:00 | PN.CDI ---
CDI
- -
CDI:
Physician Documentation Request
Admit Date: 01/28/25 11:43
Dear Doctor Brisa,
Patient admitted with worsening Parkinson's disease.
Please review the following and provide your response in the progress notes.
Clinical Indicators:
Height: 5' 1'
Weight: 99 lb 9 oz
BMI: 18.8
Please provide an associated diagnosis related to the abnormal BMI, such as:
Underweight
Cachectic
Anorexia
Other
BMI < or = to 19
Underweight
Weight Loss
Cachectic
Anorexia
Use of terms such as suspected, likely, concern for, or probable (associated with a specific diagnosis that is being evaluated, monitored, or treated as if it exists) are acceptable and can be coded in the inpatient setting, when documented at the
time of discharge.
Thank you,
Sherley GARCIA,RN,CCDS
CDI Specialist
Available via tiger text
Please use your independent medical judgment in providing your response.
--- NOTE | 2025-02-04 11:10 | CM ---
Addendum entered by EN Vargas 02/04/25 13:36:
Received call from Candi at [facility] who confirmed ability for patient to transfer today
# For report [phone] ask for nursing.
Original Note:
Met with patient and her spouse who was at bedside. They are ready to transfer to [facility]. Patient's son in law, Nick, will transport. Placed a call to Morena, customer account administrator at [facility] to confirm that all documentation needed from dept. has
been provided to them. Had to leave a voice mail. Requested return call if any additional information is needed and provided office number and Cell phone number.
Plan: Case management will continue to follow and assist with discharge planning. [facility] upon medical clearance.
[2025-02-04 13:36] VITALS: BP 127/83; PULSE 102
--- NOTE | 2025-02-04 14:10 | W.DCSUMMARY ---
Discharge Summary
Discharge Data
Date of Admission: 01/28/25
Date of Discharge: 02/04/25
-
Pending Results: No
Hospital Course
75F Parkinson p/w ambulatory dysfunction UTI and significant Anxiety. Ambulatory dysfunction suspect secondary to worsening Parkinson's disease- also has severe anxiety. Neurology eval appreciated. Added Entacapone per neurology recommendation
along with Crexont. Discontinued sertraline as per neuro. Continue with trazodone at night. Patient should follow-up with neurology outpatient. CT head 01/27 noted no acute abnormality. neg orthostatic vitals. Speech eval with VSE appreciated,
continue IDDS 6 diet. Low dose PO Ativan 0.25 mg TIDPRN anxiety tolerated well (patient only taking once a day during stay, dose reduced to BIDPRN on discharge). UTI ruled out, Urine culture with mixed bernadine, DC further antibiotic. PT/OT eval
appreciated Home Health, patient/family interested in assisted living [facility]
case mgmt consult appreciated. Medically stable, patient was discharged home with home services and outpatient follow up recommendations.
Discharge Plan
-
Patient Disposition: Assisted Living
Discharge Diagnosis/Procedures: Ambulatory dysfunction suspect secondary to worsening Parkinson's disease vs Anxiety
Insomnia
Mild Hyponatremia
Condition: Fair
Diet: Other diet
Additional Diets: soft bite sized diet, medications crushed in puree
Activity: With assistance and As tolerated
Driving Restrictions: Not until seen by your Dr
Bathing Restrictions: None
Blood Work: Repeat CBC and BMP with primary care provider in 1 week of discharge
Other Services: PT and OT
Activity Restrictions/Additional Instructions:
Follow up with your primary care provider in 1 week of discharge and your Neurologist in 2 weeks of discharge.
Ativan prescribed as needed for anxiety
Entacapone prescribed to be taken with Crexont for better control Parkinson Disease.
Sertraline discontinued due to concerns hyponatremia (though mild) and possible worsening Parkinson symptoms
Please take medications as prescribed/recommended and follow up with primary care provider Neurology and/or other healthcare provider involved in your care for refills and/or further adjustment to your medication regimen as necessary.
Referrals:
Dalila Arredondo MD [Family Provider, [facility]] - in one week
Prescriptions:
New
entacapone 200 mg Tablet
200 mg PO QID Qty: 120 0RF
Rx Instructions:
Give with Crexont
lorazepam 0.5 mg Tablet
0.25 mg PO TIDPRN PRN (Reason: anxiety) Qty: 5 0RF
Continued
trazodone 50 mg Tablet
50 mg PO HS
Crexont 70-280 mg Capsule,Ir -Extend Rel,Biphase
1 cap PO QID
Patient Comments:
01/27/25-patient has trouble swallowing these and has been opening them up and put them in applesauce but then forgetting to eat the applesauce
magnesium citrate [Citrate of Magnesia] Solution
300 ml PO DAILYPRN PRN (Reason: Constipation)
polyethylene glycol 3350 [Gavilax] 17 gram/dose powder
8.5 g PO DAILYPRN PRN (Reason: Constipation)
Discontinued
cephalexin 500 mg capsule
500 mg PO Q8H 7 Days Qty: 21 0RF
sertraline 25 mg Tablet
25 mg PO DAILY@1200
Discharge Orders:
Discharge Patient (As Directed); Ordered 02/04/25
Ordered By: Jaya Ledezma
Discharge Date and Time
Discharge Date/Time: 02/04/25 14:33
Print Language: FIJIAN
== END 2025-02-04 14:33 | disposition home or self-care (01) | DRG 57 ==
LOC: 4 EAST ACU 11:43
PROVIDERS: Physician Assistant; ADMITTING PHYSICIAN Internal Medicine; ATTENDING PHYSICIAN Internal Medicine; CONSULT PHYSICIAN Psychiatry & Neurology Neurology; EMERGENCY PHYSICIAN Emergency Medicine; FAMILY PHYSICIAN Family Medicine
DX: G20.A1 Parkinson's disease without dyskinesia, without mention of fluctuations (principal); N39.0 Urinary tract infection, site not specified; E87.1 Hypo-osmolality and hyponatremia; R55 Syncope and collapse; R19.7 Diarrhea, unspecified; R26.2 Difficulty in walking, not elsewhere classified; R13.10 Dysphagia, unspecified; F32.A Depression, unspecified; G47.00 Insomnia, unspecified; F41.9 Anxiety disorder, unspecified; G47.52 REM sleep behavior disorder; I73.00 Raynaud's syndrome without gangrene; R54 Age-related physical debility; M81.0 Age-related osteoporosis without current pathological fracture; E78.5 Hyperlipidemia, unspecified; Z85.828 Personal history of other malignant neoplasm of skin; Z88.1 Allergy status to other antibiotic agents
CPT/HCPCS: 70450; 74230; 80048; 80053; 80076; 81003; 81015; 82607; 82728; 82746; 83735; 84100; 84132; 84443; 84484; 85025; 85652; 86140; 87086; 92526; 92610; 92611; 93005; 96361; 96374; 97116; 97163; 97167; 97530; 99284; 99285

== ENCOUNTER 2025-05-08 12:46 | Emergency (ER) | payer MEDICARE, OTHER, SELFPAY ==
[2025-05-08 12:51] VITALS: BP 140/85
[2025-05-08 13:22] VITALS: BP 120/96; BMI 24.2
--- NOTE | 2025-05-08 13:24 | ED.GENMED ---
History of Present Illness
General
Chief Complaint: Head Injury
Source: patient
Exam Limitations: none
Time Seen by Provider: 05/08/25 12:59
Nursing documentation reviewed up to this point in time: agreed with
History of Present Illness
History of Present Illness:
see MDM
Past History
Past History
ED Past Medical History: Other (Parkinson's disease, fractured sternum)
ED Past Surgical History: Gynecological
Social History
Tobacco: Non-smoker
Drug: Former user
Living: with family
Employment: Employed
Review of Systems
Review of Systems
Allergies reviewed?: Yes
All Other Systems: Not applicable
Phy Exam
Physical Exam
Physical Exam:
see MDM
Course
Orders/Labs/Results
Orders:
Orders
05/08/25 13:20
CT Head W/o Iv Contrast Urgent
Comment:
Reason For Exam: hit R head 3 days ago, parkinsons, nausea, headach
Ankle, Right 3 view CR [CR Ankle - Right Min 3 Views *] Urgent
Comment:
Reason For Exam: right anlke pain lateral, fall
05/08/25 15:22
Acetaminophen [Tylenol] 650 mg PO NOW STA
05/08/25 16:11
Ibuprofen [Motrin] 400 mg PO NOW STA
Vital Signs
Initial and Last Documented VS:
Initial Vital Signs
Temp Pulse Resp BP Pulse Ox
36.7 C 94 20 140/85 98
05/08/25 12:51 05/08/25 12:51 05/08/25 12:51 05/08/25 12:51 05/08/25 12:51
Last Documented Vital Signs
Temp Pulse Resp BP Pulse Ox
36.4 C 80 16 120/96 98
05/08/25 13:22 05/08/25 13:22 05/08/25 13:22 05/08/25 13:22 05/08/25 13:25
MDM/Problems Addressed
MDM/Problems Addressed:
Note:
CHIEF COMPLAINT(S)
Fall with head and ankle injury.
HISTORY OF PRESENT ILLNESS
The patient is a 75-year-old female with Parkinson�s disease who presented after experiencing a fall. The patient reports that she was ascending steps when she tripped and fell, landing on her R side, injuring her R ankle and R. She describes
hitting the side of her head on the floor and subsequently developed a headache, rated as moderate in intensity, along with a noticeable bump. She has been experiencing persistent dizziness and slight nausea since the fall. The dizziness was
accompanied by difficulty focusing her eyes, described as blurriness. The patient denies losing consciousness but mentions a general feeling of being dazed. She reports that her physical therapist has noted a potential injury to her ankle, described
as being painful but weight-bearing. There is no reported vomiting or major changes in consciousness, although the patient expressed increased confusion attributed to the irregular timing of her Parkinsons medications. These symptoms were
exacerbated by the fall. The patients spouse mentioned that there was a discussion of potential concussion with symptoms including dizziness, nausea, confusion, and memory difficulties.
no neck pain, thinners, vomiting, cp, sob, weakness.
SOCIAL DETERMINANTS AFFECTING HEALTH
The patient resides at a facility that provides independent living; however, she mentions a lack of consistent nursing staff support, leading to challenges with medication management and increased personal responsibility for care, which is stressful.
PHYSICAL EXAM
- Nursing notes reviewed and vital signs reviewed.
GENERAL: Alert , in no apparent distress
HEAD: NCAT
EYE: pupils equal and reactive, no nystagmus, minimal photophobia
NECK: Supple,full rom, nontender
ENT: o/p clr, mmm.
CARDIAC: Regular rate and rhythm . no edema
LUNGS: Clear breath sounds bilaterally, no acute respiratory distress, no wheezes/rales/rhonchi
ABDOMEN: Soft, without focal tenderness, no r/g, no cvat
NEUROLOGICAL: Alert and orientedx 4, cn intact, no facial asymmetry, 5/5 strength in UE/LE, sensation intact, romberg neg, ambulates without assistance, neg pronator drift
SKIN: Warm and dry, skin intact.
MUSCULOSKELETAL: No edema, well perfused.
PSYCH: Normal and appropriate interaction.
PLAN
1. Obtain an X-ray of the right ankle to assess for fractures.
2. Conduct a CT scan of the head to rule out intracranial hemorrhage or skull fracture.
3. Recommend rest and brain rest for 48 hours to accommodate concussion symptoms, minimizing exposure to technology and mentally stimulating activities.
4. Offer acetaminophen for headache management.
5. Provide anti-nausea medication if requested by the patient.
DIFFERENTIAL DIAGNOSIS
The Differential Diagnosis includes, in no particular order and is not limited to:
1. Concussion
2. Subdural hematoma
3. Skull fracture
4. Anklesprain/fracture
5. Intracranial hemorrhage
6. Cervical spine injury
7. Vestibular dysfunction (contributing to dizziness)
8. Simple fall due to Parkinsons disease postural instability
9. Medication side effects causing dizziness and confusion
10. Migrainous episode secondary to head trauma
75-year-old female from [facility] with a history of Parkinson's who had a mechanical trip and fall 3 days ago injuring her right head and right ankle. She had no loss of consciousness and is not anticoagulated but has had persistent symptoms like
a mild headache, some lightheadedness, feeling dazed, slightly nauseous, some intermittent blurred vision ever since. She never got checked out after the initial incident. She saw her physical therapist who looked at her ankle and thought it was
sprained. She has been able to weight-bear on it with some mild pain. It is not but significantly swollen. On exam she looks well, she has some signs of parkinsonism but otherwise neurologically intact, there is no weakness or lateralization of
any deficits, she has no significant hematoma on her head, no neck tenderness.
Head CT was negative
Ankle x-ray independently reviewed by me and negative for fracture, she has some tenderness to the posterior right lateral malleolus
Will ambulate and likely DC
pt was feeling worse with stronger headache 12/24
she was given motrin
bp 140/90
pt is tearful and very s tressed about missing her parkinsons meds which are not on formalery here and she wants to go home despite having more headache
i think a lot of her headache is emotional stress
she has had a lot of changes in her health the past 4 mo and they are selling their house int he next week
pt's family comfortable with taking her home
she declined any IV pain meds
no red flag symptoms.
*Pulse Oximetry
SaO2: 98
Oxygen Mode of Delivery: Room air
Patient hypoxic: no (98)
*Critical Care Note
Total Time (30-74mins, 75-104mins- exclusive of procedures): Not Applicable
ED Attending Note
-
Portions of this chart may have been created with voice recognition software.� Occasional wrong word or��sound alike� substitutions may have occurred due to the inherent limitations of voice recognition software.
Discharge Plan
Departure
Patient Disposition: Home (Routine Discharge)
Date of Disposition: 05/08/25
Time of Disposition: 16:01
Patient with high blood pressure during this ER visit?: No
Condition: Fair
Covid-19: Not Applicable
Discharge Problem:
Concussion, Right ankle sprain
Instructions: Concussion, Adult (DC), Ankle sprain - ED (DC)
Prescriptions:
No Action
trazodone 50 mg Tablet
50 mg PO HS
Crexont 70-280 mg Capsule,Ir -Extend Rel,Biphase
1 cap PO QID
Patient Comments:
01/27/25-patient has trouble swallowing these and has been opening them up and put them in applesauce but then forgetting to eat the applesauce
magnesium citrate [Citrate of Magnesia] Solution
300 ml PO DAILYPRN PRN (Reason: Constipation)
polyethylene glycol 3350 [Gavilax] 17 gram/dose powder
8.5 g PO DAILYPRN PRN (Reason: Constipation)
entacapone 200 mg Tablet
200 mg PO QID Qty: 120 0RF
Rx Instructions:
Give with Crexont
lorazepam 0.5 mg Tablet
0.25 mg PO TIDPRN PRN (Reason: anxiety) Qty: 5 0RF
Referrals:
Ekta Garcia, DO [Family Provider, General] - Follow up in 2-3 days
Activity Restrictions/Additional Instructions:
You likely have a mild concussion
for this we recommend 48-hour hours of brain rest to help your brain heal and your headache improve.
also use tylenol every 6 hours for headache as needed
48 hours you can return to activities like reading and computer and TV etc.
Symptoms can take several days to a week or so to resolve. If you are still having headaches persistently you are feeling lightheaded you should follow-up with your family doctor,and/or your neurologist
return to the er for: worsening pain, vomiting, confusion, weakness, numbness/tingling in arms or legs or any concerns.
Interventions
Interventions:
*Risk Screen - Suicide Last Done: 05/08/25 13:22
*General Assessment Last Done: 05/08/25 12:51
*Neglect/Abuse Screening Last Done: 05/08/25 13:22
*ED- Fall Risk Assessment Last Done: 05/08/25 13:22
*ED COVID-19 Vaccine History Last Done: 05/08/25 13:22
*ED Influenza Vaccine History Last Done: 05/08/25 13:22
*Nursing Disposition Last Done: 05/08/25 16:44
ED- Neurological Assessment Last Done: 05/08/25 13:22
ED-Skin Assessment Last Done: 05/08/25 13:22
Discharge Date and Time
Discharge Date/Time: 05/08/25 16:15
Print Language: BULGARIAN
[2025-05-08] MEDS: TYLENOL 650 MG PO (15:47)
[2025-05-08] MEDS: MOTRIN 400 MG PO (16:13)
== END 2025-05-08 16:15 | disposition home or self-care (01) ==
LOC: EMR 12:46
PROVIDERS: EMERGENCY PHYSICIAN Emergency Medicine; FAMILY PHYSICIAN Hospitalist
DX: S06.0XAA Concussion with loss of consciousness status unknown, initial encounter (principal); S93.401A Sprain of unspecified ligament of right ankle, initial encounter; W10.9XXA Fall (on) (from) unspecified stairs and steps, initial encounter; X50.1XXA Overexertion from prolonged static or awkward postures, initial encounter; G20.A1 Parkinson's disease without dyskinesia, without mention of fluctuations
CPT/HCPCS: 99284; 70450; 73610

== ENCOUNTER → 2025-05-10 17:22 | Outpatient (REF) | payer MEDICARE, OTHER, SELFPAY ==
[2025-05-10 18:38] LABS: Urine Character Cloudy (Clear)
[2025-05-10 18:50] LABS: Urine Red Blood Cell 0-2 /HPF (0-2); Urine White Cell 30-40 /HPF (0-5)
== END ==
LOC: OLABMERCHI 17:22
PROVIDERS: ATTENDING PHYSICIAN Hospitalist
DX: R30.0 Dysuria (principal); M62.81 Muscle weakness (generalized)
CPT/HCPCS: 81003; 81015; 87077; 87086; 87186

== ENCOUNTER 2025-06-08 21:08 | Emergency (ER) | payer MEDICARE, OTHER, SELFPAY ==
[2025-06-08 21:21] VITALS: BP 147/70
[2025-06-08 21:34] VITALS: BMI 19.6
--- NOTE | 2025-06-08 21:38 | ED.GENMED ---
History of Present Illness
<Valorie Field PA-C - Last Filed: 06/09/25 01:32>
General
Chief Complaint: Chest Pain
Source: patient
Exam Limitations: none
Time Seen by Provider: 06/08/25 21:37
History of Present Illness
History of Present Illness:
75yoF with a history of Parkinson's disease presenting for evaluation of chest pain. Symptoms began around 6:30 PM this evening. She reports some minor discomfort in her left chest while walking into her room today. She then got on the treadmill
and was walking slowly and the pain seems to get worse. Pain is currently improved. She reports some slight shortness of breath but denies any pleuritic pain. No associated diaphoresis, nausea, vomiting, dizziness, syncope, paresthesias. No
prior history of heart disease.
Past History
<Valorie Field PA-C - Last Filed: 06/09/25 01:32>
Past History
ED Past Medical History: Other (Parkinson's disease, fractured sternum)
ED Past Surgical History: Gynecological
Social History
Tobacco: Non-smoker
Drug: Former user
Living: with family
Employment: Employed
Phy Exam
<Valorie Field PA-C - Last Filed: 06/09/25 01:32>
General Physical Exam
General Presentation: well appearing and no apparent distress
General age: appears stated age
General Skin: warm and dry
General Habitus: normal
General Mental: alert
ENT Exam
ENT Exam: normocephalic
Cardiovascular Exam
Cardiovascular Exam: regular rate/rhythm, no edema, no murmur and normal peripheral pulses (2+ radial and DP pulses bilaterally)
Pulmonary Exam
Pulmonary Exam: lungs clear, no respiratory distress, no rales, no crackles, no rhonchi, no wheezing and other (+Tenderness to L upper chest wall)
Gastrointestinal Exam
Gastrointestinal Exam: non tender, soft and non distended
Neurological Exam
Neurological Exam: alert
Brian Coma Scale
Eye Opening: Spontaneous
Verbal Response: Oriented
Motor Response: Obeys Commands
GCS Total Score: 15
Skin Exam
Skin Exam: normal color and warm/dry
Psychiatric Exam
Psychiatric Exam: normal mood/affect
<Marbin Cartagena DO - Last Filed: 06/09/25 01:15>
Physical Exam
Physical Exam:
.
Scores
<Valorie Field PA-C - Last Filed: 06/09/25 01:32>
Heart Score for Chest Pain Patients
STEMI patient?: No
History: Moderately Suspicious
ECG: Normal
Age: >/= 65 years
Risk Factors: No Risk Factors
Troponin: </= Normal Limit
Heart Score for Chest Pain Patients: 3
Heart Score Risk: 2.5% MACE over next 6 weeks
Course
<Valorie Field PA-C - Last Filed: 06/09/25 01:32>
Orders/Labs/Results
Orders:
Orders
06/08/25 21:09
EKG [Electrocardiogram (*1)] Urgent
Reason for Study: Chest Pain
EKG- Treatment ONCE
06/08/25 22:00
Complete Blood Count/With Diff Urgent
Comprehensive Metabolic Panel Urgent
Troponin I Urgent
06/08/25 22:10
Cardiac Monitoring- Treatment ONCE
CR Chest - 2 Views Urgent
Comment:
Reason For Exam: CP
06/09/25 00:32
Troponin I Urgent
Abnormal Lab Results
06/08/25
22:00
RBC 4.14 L 10^6/uL
(4.20-5.40)
MCV 99.8 H fL
(81.0-99.0)
MCH 33.3 H pg
(27.0-31.0)
MPV 11.8 H fL
(7.4-10.4)
Monocytes % 9.4 H %
(1.7-9.3)
BUN 21 H mg/dl
(7-17)
Glucose 100 H mg/dl
(70-99)
Total Protein 8.3 H g/dl
(6.3-8.2)
06/08/25 22:00
06/08/25 22:00
Vital Signs
Initial and Last Documented VS:
Initial Vital Signs
Temp Pulse Resp BP Pulse Ox
98.4 F 76 20 147/70 97
06/08/25 21:21 06/08/25 21:21 06/08/25 21:21 06/08/25 21:21 06/08/25 21:21
Last Documented Vital Signs
Temp Pulse Resp BP Pulse Ox
98.4 F 71 16 129/71 100
06/08/25 21:21 06/08/25 23:00 06/08/25 23:00 06/08/25 23:00 06/08/25 23:00
Deweylt;Marbin Cartagena, DO - Last Filed: 06/09/25 01:15>
Orders/Labs/Results
Orders:
Orders
06/08/25 21:09
EKG [Electrocardiogram (*1)] Urgent
Reason for Study: Chest Pain
EKG- Treatment ONCE
06/08/25 22:00
Complete Blood Count/With Diff Urgent
Comprehensive Metabolic Panel Urgent
Troponin I Urgent
06/08/25 22:10
Cardiac Monitoring- Treatment ONCE
CR Chest - 2 Views Urgent
Comment:
Reason For Exam: CP
06/09/25 00:32
Troponin I Urgent
Abnormal Lab Results
06/08/25
22:00
RBC 4.14 L 10^6/uL
(4.20-5.40)
MCV 99.8 H fL
(81.0-99.0)
MCH 33.3 H pg
(27.0-31.0)
MPV 11.8 H fL
(7.4-10.4)
Monocytes % 9.4 H %
(1.7-9.3)
BUN 21 H mg/dl
(7-17)
Glucose 100 H mg/dl
(70-99)
Total Protein 8.3 H g/dl
(6.3-8.2)
06/08/25 22:00
06/08/25 22:00
Vital Signs
Initial and Last Documented VS:
Initial Vital Signs
Temp Pulse Resp BP Pulse Ox
98.4 F 76 20 147/70 97
06/08/25 21:21 06/08/25 21:21 06/08/25 21:21 06/08/25 21:21 06/08/25 21:21
Last Documented Vital Signs
Temp Pulse Resp BP Pulse Ox
98.4 F 71 16 129/71 100
06/08/25 21:21 06/08/25 23:00 06/08/25 23:00 06/08/25 23:00 06/08/25 23:00
<Valorie Field PA-C - Last Filed: 06/09/25 01:32>
MDM/Problems Addressed
Differential Diagnosis Includes:
75yoF here with L sided chest pain that worsened while walking on treadmill. Now improved. Mildly hypertensive in triage with otherwise normal vitals. There is mild chest wall tenderness on exam. Differential diagnosis includes: Musculoskeletal
chest pain, angina, ACS, pneumonia
Initial ED plan: Triage EKG shows normal sinus rhythm without ischemic changes. Will check cardiac labs and chest x-ray.
<Valorie Field PA-C - Last Filed: 06/09/25 01:32>
*Pulse Oximetry
SaO2: 97
Oxygen Mode of Delivery: Room air
Patient hypoxic: no
*EKG
Interpreted by ED Provider?: Yes
EKG Intrepretation Date: 06/08/25
Heart Rate: 73
Rate: normal
Rhythm: sinus
[place]: normal axis
Interval: normal interval
QRS Pattern: normal QRS
Ischemia: no ischemia
<Marbin Cartagena DO - Last Filed: 06/09/25 01:15>
*Critical Care Note
Total Time (30-74mins, 75-104mins- exclusive of procedures): Not Applicable
<Valorie Field PA-C - Last Filed: 06/09/25 01:32>
Update Note
Update Note:
Troponin undetectable and remainder of labs unremarkable. Chest x-ray appears normal per my interpretation. Discussed need for repeat troponin but family unable to stay in the ED any longer. Patient agreeable to have repeat troponin drawn before
discharge which is about 2.5 hours after initial troponin. Patient will be notified via phone if this comes back abnormal. She is feeling much better currently. Will have patient follow up with chest pain hotline. Strict ED return precautions
reviewed. She left in stable condition.
ED Attending Note
<Valorie Field PA-C - Last Filed: 06/09/25 01:32>
-
Portions of this chart may have been created with voice recognition software.� Occasional wrong word or��sound alike� substitutions may have occurred due to the inherent limitations of voice recognition software.
<Marbin Cartagena DO - Last Filed: 06/09/25 01:15>
ED Attending Note
Patient seen and examined by attending physician: Yes
I performed the substantive portion of visit, reviewed & personally made and approve the management plan that is documented in note by myself or CLIFFORD.: Yes
ED Attending Note:
Note:
CHIEF COMPLAINT(S)
Chest pain.
HISTORY OF PRESENT ILLNESS
The patient, a 75-year-old female, presents with complaints of chest pain. The onset of the pain is not explicitly detailed, but the concern for a potential cardiac event such as a heart attack is noted. During the evaluation, an electrocardiogram
(EKG) and an initial troponin test were performed, both yielding normal results. A chest X-ray also appeared normal. However, due to the nature of chest pain and the diagnostic uncertainty it sometimes presents, a follow-up troponin test is planned
to ensure there is no change from the initial results. It was explained that this is a standard diagnostic procedure to rule out any heart-related distress or damage. The patient was informed that obtaining the second troponin level prematurely
could result in a missed diagnosis, but they consented to proceed with the early test.
REVIEW OF SYSTEMS
- Cardiovascular: Complaint of chest pain. Initial EKG and troponin test results normal.
- Respiratory: Normal chest X-ray.
PHYSICAL EXAM
General: Alert, no acute distress.
Skin: Warm, dry.
Head: Normocephalic, atraumatic.
Neck: Supple, trachea midline.
Eye, Ears, Nose, Mouth, and Throat: Oral mucosa moist.
Cardiovascular: Normal peripheral perfusion, no edema.
Respiratory: Non-labored respirations.
Gastrointestinal: Abdomen nondistended.
Back: Normal range of motion, normal alignment.
Musculoskeletal: Normal ROM, normal strength.
Neurological: Alert and oriented to person, place, time, and situation, no focal neurological deficit observed.
Psychiatric: Cooperative, appropriate mood & affect.
PLAN
- Proceed with the second troponin test to compare with the initial result and confirm no cardiac distress.
- Monitor and evaluate test results to further assess the need for additional diagnostic procedures or treatments.
DIFFERENTIAL DIAGNOSIS
The Differential Diagnosis includes, in no particular order and is not limited to:
1. Acute Coronary Syndrome (ACS)
2. Myocardial Infarction
3. Angina Pectoris
4. Pulmonary Embolism
5. Aortic Dissection
6. Pericarditis
7. Costochondritis
8. Gastroesophageal Reflux Disease (GERD)
9. Pneumothorax
10. Anxiety Disorder
Disposition:
SUMMARY OF ENCOUNTER
The patient, a 68-year-old female, presented to the emergency department with complaints of chest pain. An initial evaluation was conducted, including an electrocardiogram (EKG) and a troponin test. The first troponin test result was negative.
Despite the recommendation to stay for the results of the second troponin test, the patient and her family decided to leave the facility.
DISPOSITION
The patient left prior to second troponin returning
PLAN
The patient was advised to follow-up via the chest pain follow-up hotline for any concerns or changes in her condition.
INDEPENDENT REVIEW OF LABS AND INTERPRETATION OF TESTS
My independent review of the troponin test is that the result was negative.
PATIENT EDUCATION AND COUNSELING
The patient and her family were informed about the importance of monitoring chest pain and advised on the necessity of staying for further testing. However, they chose to leave. Information about accessing the chest pain follow-up hotline for
further assistance was provided.
MEDICAL DECISION MAKING
-Complexity of Data Reviewed: Chronic conditions affecting care. Differential diagnoses considered include Acute Coronary Syndrome (ACS), Myocardial Infarction, Angina Pectoris, Pulmonary Embolism, Aortic Dissection, Pericarditis, Costochondritis,
Gastroesophageal Reflux Disease (GERD), Pneumothorax, Anxiety Disorder.
-Data:
Category 1
My independent interpretation of the EKG was normal.
My independent review of the first troponin level was negative.
-Risk: Consideration of Admission/Observation: Escalation of care including admission/observation was considered given the complexity and risk of the patients presenting complaint. However, the patient and family refused to stay, and they left
against medical advice.
DIAGNOSIS
Chest pain, unspecified (ICD-10: R07.9).
Discharge Plan
Departure
Patient Disposition: Home (Routine Discharge)
Date of Disposition: 06/09/25
Time of Disposition: 00:19
Patient with high blood pressure during this ER visit?: No
Discharge Problem:
Chest pain
Instructions: Chest Pain CBC Follow Up
Prescriptions:
No Action
trazodone 50 mg Tablet
50 mg PO HS
Crexont 70-280 mg Capsule,Ir -Extend Rel,Biphase
1 cap PO QID
Patient Comments:
01/27/25-patient has trouble swallowing these and has been opening them up and put them in applesauce but then forgetting to eat the applesauce
magnesium citrate [Citrate of Magnesia] Solution
300 ml PO DAILYPRN PRN (Reason: Constipation)
polyethylene glycol 3350 [Gavilax] 17 gram/dose powder
8.5 g PO DAILYPRN PRN (Reason: Constipation)
entacapone 200 mg Tablet
200 mg PO QID Qty: 120 0RF
Rx Instructions:
Give with Crexont
lorazepam 0.5 mg Tablet
0.25 mg PO TIDPRN PRN (Reason: anxiety) Qty: 5 0RF
Referrals:
Marbin Moncada MD [Active, Cardiology]
NONE,* [Active, Internal Medicine]
Activity Restrictions/Additional Instructions:
The cardiology office should call you to schedule a follow-up appointment. Please call the office if you do not hear from them.
Return to the ER immediately with any new or worsening symptoms.
Interventions
Interventions:
*General Assessment Last Done: 06/08/25 21:21
*Neglect/Abuse Screening Last Done: 06/08/25 21:34
*ED COVID-19 Vaccine History Last Done: 06/08/25 21:34
*ED Influenza Vaccine History Last Done: 06/08/25 21:34
[facility] Risk Assessment Tool Last Done: 06/08/25 21:34
*Risk Screen - Suicide (C-SSRS) Last Done: 06/08/25 21:34
ED- Cardiac Assessment Last Done: 06/08/25 21:34
Discharge Date and Time
Print Language: CHINESE
[2025-06-08 21:45] VITALS: BP 144/84
[2025-06-08 22:00] VITALS: BP 146/84
[2025-06-08 22:26] LABS: Hematocrit 41.3 % (37.0-47.0); Hemoglobin 13.8 g/dL (12.0-16.0); Mean Corp Hgb Conc. 33.4 g/dL (33.0-37.0); Mean Corpuscular Volume 99.8 fL (81.0-99.0); Nucleated Red Blood Cells % 0 %; Platelet Count 230 10^3/uL (130-400); Red Cell Dist. Width 13.6 % (11.5-14.5)
[2025-06-08 22:47] LABS: ALT (SGPT) < 10 U/L (0-35); AST (SGOT) 36 U/L (14-36); Albumin 4.9 g/dl (3.5-5.0); Alkaline Phosphatase 78 U/L (38-126); Blood Urea Nitrogen 21 mg/dl (7-17); Calcium 9.8 mg/dl (8.4-10.2); Carbon Dioxide 26 mmol/L (22-30); Chloride 102 mmol/L (98-107); Estimated Creatinine Clearance 45 ml/min; Glucose 100 mg/dl (70-99); Potassium 4.3 mmol/L (3.5-5.1); Sodium 135 mmol/L (135-145); Total Protein 8.3 g/dl (6.3-8.2); eGFR > 60.00
[2025-06-08 23:00] VITALS: BP 129/71
[2025-06-08 23:01] LABS: Troponin I < 0.012 ng/ml
[2025-06-09 01:19] LABS: Troponin I < 0.012 ng/ml
== END 2025-06-09 00:40 | disposition home or self-care (01) ==
LOC: EMR 21:08
PROVIDERS: Emergency Medicine; Physician Assistant; EMERGENCY PHYSICIAN Student in an Organized Health Care Education/Training Program; FAMILY PHYSICIAN Hospitalist
DX: R07.9 Chest pain, unspecified (principal); G20.A1 Parkinson's disease without dyskinesia, without mention of fluctuations
CPT/HCPCS: 99284; 71046; 80053; 84484; 85025; 93005